=== PATIENT | male | born 1955 | race Caucasian/White ===

== ENCOUNTER → 2020-10-18 07:26 | Outpatient (CLI) | payer MEDICARE, SELFPAY ==
[2020-10-18 08:38] LABS: Alanine Aminotransferase 41 IU/L (<50); Albumin 4.4 g/dL (3.5-5.0); Albumin Globulin Ratio 1.5 (1.0-2.8); Alkaline Phosphatase 97 U/L (38-126); Aspartate Aminotransferase 41 IU/L (17-59); BUN Creatinine Ratio 12.6 (6-22); Bilirubin Total 0.4 mg/dL (0.2-1.3); Blood Urea Nitrogen 15 mg/dL (9-20); Calcium 10.1 mg/dL (8.4-10.2); Carbon Dioxide 26 mmol/L (22-32); Chloride 107 mmol/L (98-107); Cholesterol 237 mg/dL (140-199); Estimated Glomerular Filt Rate > 60.0 mL/min (>60); Globulin 2.9 g/dL (1.7-4.1); Glucose 101 mg/dL (80-110); HDL Cholesterol 93 mg/dL (40-60); HEMOLYSIS < 15 (0-50); LDL Cholesterol Calculated 128 mg/dL (<100); Potassium 5.2 mmol/L (3.4-5.1); Sodium 139 mmol/L (137-145); Total Protein 7.3 g/dL (6.3-8.2); Triglycerides 80 mg/dL (35-150)
[2020-10-18 09:13] LABS: Carcinoembryonic Antigen 9.2 ng/mL (0.1-3.0); Prostate Specific Antigen Scrn 1.65 ng/mL (0.1-4.0)
== END ==
PROVIDERS: PCP Internal Medicine; Referring Provider Internal Medicine; Visit Provider Internal Medicine
DX: C18.9 Malignant neoplasm of colon, unspecified (principal); Z12.5 Encounter for screening for malignant neoplasm of prostate; Z13.220 Encounter for screening for lipoid disorders
CPT/HCPCS: 36415; 80053; 80061; 82378; G0103

== ENCOUNTER → 2021-09-16 14:41 | Outpatient (CLI) | payer MEDICARE, SELFPAY ==
--- NOTE | 2021-09-16 14:42 | DI.US.S_ITS ---
PROCEDURE: US SCROTUM INDICATIONS: RIGHT INGUINAL/SCROTAL PAIN TECHNIQUE: Real-time scanning was performed of the scrotum and testicles, with image documentation. Color and pulse Doppler interrogation was performed of both testicles. COMPARISON: None. FINDINGS: Right: Testicle is normal in size at 4.2 x 2.4 x 2.5 cm, and homogenous in echotexture. Epididymis is normal in overall size and morphology. Large right hydrocele which contains debris. No varicoceles. Overlying scrotal skin is normal in thickness. Left: Testicle is normal in size at 3.4 x 3.0 x 2.3 cm, and homogeneous in echotexture. Epididymis is normal in overall size and morphology. Large right hydrocele which contains debris. No varicoceles. Overlying scrotal skin is normal in thickness. Doppler: Color and pulse Doppler demonstrate normal and symmetric arterial flow in both testicles. Area of acoustic shadowing noted in the right inguinal region which may be related to I hernia mesh; please correlate with surgical history. If patient has not had prior right inguinal hernia repair surgery, then CT scan of the pelvis should be obtained for further evaluation. IMPRESSION: 1. Bilateral hydroceles which contain debris. Debris is nonspecific may be related to prior hemorrhage, however infection/pyocele can not be excluded by imaging alone. Recommend correlation with clinical and laboratory data. 2. Focal acoustic shadowing in the right inguinal region possibly related to hernia mesh. Please correlate with surgical history. If no history of right inguinal hernia repair, then CT scan of the pelvis should be obtained. Dictated by: Rhiannon Gupta MD, PhD on 09/20/2021 at 16:15 Approved by: Rhiannon Gupta MD, PhD on 09/20/2021 at 16:21
== END ==
PROVIDERS: PCP Internal Medicine; Referring Provider Specialist; Visit Provider Specialist
DX: N43.3 Hydrocele, unspecified (principal); N50.82 Scrotal pain
CPT/HCPCS: 76870

== ENCOUNTER 2021-10-01 08:20 | Emergency (ER) | payer MEDICARE, SELFPAY ==
[2021-10-01] VITALS (9 sets, daily range): BP systolic 153–193; BP diastolic 76–91; PULSE 67–83; RESP 15–21; TEMP 36.6; O2SAT 97–100; BMI 23.6
--- NOTE | 2021-10-01 08:43 | DI.RAD.S_ITS ---
PROCEDURE: XR CHEST 1V INDICATIONS: chest pain TECHNIQUE: One view of the chest was acquired. COMPARISON: [facility], , CHEST 1 VIEW, 01/18/2009, 10:54. FINDINGS: Surgical changes and devices: None. Lungs and pleura: There is hyperinflation and chronic interstitial changes without focal infiltrate, pleural effusion or pneumothorax. Mediastinum: Mediastinal contours appear normal. Heart size is normal. Atherosclerotic vascular calcification noted in the aortic arch. Bones and chest wall: No suspicious bony lesions. Overlying soft tissues appear unremarkable. IMPRESSION: Hyperinflation and chronic interstitial changes Approved by: Adam Frias M.D. on 10/01/2021 at 8:30
--- NOTE | 2021-10-01 08:45 | ED.CHESTPAIN ---
HPI - Chest Pain General Chief Complaint: Chest Pain Stated Complaint: chest pain Time Seen by Provider: 10/01/21 08:40 Source: patient Mode of arrival: Ambulatory Limitations: no limitations Limitations: no limitations History of Present Illness HPI narrative: This is a 65-year-old male who comes with complaint of chest pain that started and last about 6 hours overnight it was still present when he initially arrived but states that has resolved at this time. At its maximum was 5 to 6/10 he states it has been going on for several years. Typically more frequently in the afternoon at night time. He does find that lying flat seems to make it more likely to occur he denies any other worsening factors, exertion does not cause any issues. No alleviating factors. Patient has not tried any medications at home for his symptoms. He describes it is substernal in just to the right. He gets sort of a pressure like there is gas and he gets sensation in his throat and sometimes a funny taste in his mouth. He denies any diaphoresis, no dyspnea, no nausea or vomiting. He has occasionally felt lightheaded but never had any syncope. He denies any swelling in his extremities. He is on Flomax and currently on an antibiotic that he started on Sunday for paronychia of his finger which has been intermittent since August. 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 It was removed by the patient himself but he did have a follow-up x-ray that confirmed there was no foreign body. It improved he had drainage and has since recurred and started on antibiotics but is not improving currently after 3 days of antibiotics. Does have a history of colon resection for colon cancer in 2008 he had chemo but no radiation. 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 Patient states that he had some sort of reaction to narcotic pain medication but does not know what medicine it was. He smokes a half pack per day of tobacco, 2-3 beers daily, no illicit. His primary care is Dr. Wiggins. His urologist is Dr. Lagunas and he is scheduled to have surgery for an enlarged testicle. Related Data Previous Rx's Medication Instructions Recorded tamsulosin 0.4 mg capsule 0.4 mg PO BEDTIME #90 cap 08/17/21 Allergies Allergy/AdvReac Type Severity Reaction Status Date / Time No Known Drug Allergies Allergy Verified 10/01/21 09:08 Review of Systems Review of Systems ROS Unobtainable: All systems reviewed & are unremarkable except as noted in HPI and below Patient History Medical History BPH w urinary obs/LUTS Colon cancer (~2008) Oral cancer (~2007) Right hydrocele Ventral incisional hernia Vision disorder Surgical History Anesthesia History of oral surgery (~2007) S/P inguinal hernia repair (~2007) S/P partial colectomy (~2008) Family History Father Lung cancer Mother Breast cancer, stage 0 Sister Lung cancer Grandfather Accident Social History marital status: number of children: 1 Smoking Status: Current every day smoker alcohol intake: current Type(s) of exercise: walking frequency: daily duration: 45-60 minutes/day Smoking Status: Current every day smoker alcohol intake frequency: 3 or more drinks per day Substance Use Type: does not use Exam Narrative Exam Narrative: GENERAL: Alert and oriented x three, male in mild distress. HEENT: Head normocephalic, atraumatic, EOMI, pupils reactive, face symmetric, moist mucous membranes NECK: Supple, full range of motion CARDIOVASCULAR: Regular rate and rhythm without murmurs, rubs or gallops. RESPIRATORY: Breath sounds equal bilaterally, no wheezes rales or rhonchi. ABDOMEN: Soft, nontender. Normoactive bowel sounds all 4 quadrants. No guarding or rebound, rigidity, no mass : No CVA tenderness EXTREMITIES: Normal range of motion, no clubbing. Patient has swelling of the 3rd digit on his left hand around the nail with a small amount of fluctuance and white discoloration, and slight erythematous change. The area slightly tender. The nail is intact with no discoloration or skin changes. Neurovascularly intact. Patient has normal sensation throughout. Cap refill less than 5 seconds in all 5 fingers. NEUROLOGICAL: Cranial nerves II through XII grossly intact. Moving all extremities SKIN: Warm, dry, no petechiae, no rashes or lesions otherwise noted. Initial Vital Signs Initial Vital Signs: Vital Signs Temperature 97.8 F 10/01/21 08:23 Pulse Rate 83 10/01/21 08:23 Respiratory Rate 18 10/01/21 08:23 Blood Pressure 193/89 H 10/01/21 08:23 Pulse Oximetry 99 10/01/21 08:23 Procedures Abscess I/D I&D #1: Time of procedure: 10:47 Site: hand (3rd finger, left hand) Side (if applicable): left Sedation/analgesia: none Local Anesthetic: other anesthetic (topical prilocaine) Technique: incised with #11 blade Amount of fluid expressed (mL): 1 Irrigation: No Packing used?: none Course Orders Ordered: ED Orders 10/01/21 08:40 BNP [NT-proBNP (BNP-Adult 18+)] Stat 10/01/21 08:43 XR chest 1V Stat EKG-12 Lead Stat 10/01/21 08:46 Complete Blood Count AUTO DIFF Stat Comprehensive Metabolic Panel Stat Lipase Stat Magnesium Stat Troponin & CK Cardiac Panel Stat 10/01/21 10:45 Troponin I Stat 10/01/21 10:54 Wound Culture and Gram Stain Stat Discontinued Medications Lidocaine/Prilocaine (Lidocaine/Prilocaine 5 Gm) 5 gm TOP NOW ONE Stop: 10/01/21 09:08 Last Admin: 10/01/21 09:25 Dose: 5 gm Documented by: ISSAC Lidocaine/Sodium Bicarbonate (Lido 1%/Sod Bicarb 8.4% (10ml) 10 Ml Syringe) 10 ml INJ NOW ONE Stop: 10/01/21 09:08 Last Admin: 10/01/21 10:49 Dose: Not Given Documented by: ISSAC Reevaluation(s) Reevaluation #1: Patient continues to be asymptomatic in terms of chest pain. He had some relief with drainage of the abscess/paronychia his finger. Vital Signs Vital signs: Vital Signs - 8 hr 10/01/21 08:23 10/01/21 08:30 10/01/21 09:00 Temperature 97.8 F Pulse Rate 83 83 81 Respiratory Rate 18 18 17 Blood Pressure 193/89 H 189/91 H 162/86 H Pulse Oximetry 99 100 99 10/01/21 09:29 10/01/21 09:30 10/01/21 10:00 Temperature Pulse Rate 81 78 74 Respiratory Rate 19 18 15 Blood Pressure 155/82 H 153/76 H 160/89 H Pulse Oximetry 98 99 99 10/01/21 10:30 10/01/21 11:00 10/01/21 11:30 Temperature Pulse Rate 70 71 67 Respiratory Rate 21 19 18 Blood Pressure 161/85 H 164/86 H 166/85 H Pulse Oximetry 97 98 97 MDM - Chest Pain Lab Data Result diagrams: 10/01/21 08:46 10/01/21 08:46 Labs: Lab Results 10/01/21 10/01/21 10/01/21 Range/Units 08:40 08:46 08:46 WBC 7.6 (4.5-11.0) X10^3/uL RBC 5.16 (4.5-5.9) X10^6/uL Hgb 16.9 (13.5-17.5) g/dL Hct 50.1 (41-53) % MCV 96.9 (80-100) fL MCH 32.7 (26-34) PG MCHC 33.7 (30-36) % RDW 14.3 (11.6-14.8) % Plt Count 225 (150-400) X10^3/uL Neut % (Auto) 60.8 (50-75) % Lymph % (Auto) 25.5 (25-40) % [place] % (Auto) 8.8 (3-14) % Eos % (Auto) 3.5 (2-4) % Baso % (Auto) 1.4 (0-2) % Neut # (Auto) 4600 (4220-6563) /uL Lymph # (Auto) 1900 (6721-8437) /uL [place] # (Auto) 700 (0-900) /uL Eos # (Auto) 300 (0-450) /uL Baso # (Auto) 100 (0-100) /uL Sodium 138 (137-145) mmol/L Potassium 3.9 (3.4-5.1) mmol/L Chloride 106 (98-107) mmol/L Carbon Dioxide 27 (22-32) mmol/L BUN 14 (9-20) mg/dL Creatinine 1.02 (0.66-1.25) mg/dL Estimated GFR > 60.0 (>60) mL/min BUN/Creatinine Ratio 13.7 (6-22) Glucose 165 H (80-110) mg/dL Calcium 9.2 (8.4-10.2) mg/dL Magnesium 2.1 (1.6-2.3) mg/dL Total Bilirubin 0.7 (0.2-1.3) mg/dL AST 40 (17-59) IU/L ALT 29 (<50) IU/L Alkaline Phosphatase 75 (38-126) U/L Total Creatine Kinase 93 (55-170) U/L CK-MB (CK-2) TNP CK-MB (CK-2) Rel Index TNP Troponin I < 0.012 (0.01-0.034) ng/mL NT-Pro-B Natriuret Pep 112 (<125) pg/mL Total Protein 7.9 (6.3-8.2) g/dL Albumin 4.6 (3.5-5.0) g/dL Globulin 3.3 (1.7-4.1) g/dL Albumin/Globulin Ratio 1.4 (1.0-2.8) Lipase 51 (23-300) U/L 10/01/21 Range/Units 10:45 WBC (4.5-11.0) X10^3/uL RBC (4.5-5.9) X10^6/uL Hgb (13.5-17.5) g/dL Hct (41-53) % MCV (80-100) fL MCH (26-34) PG MCHC (30-36) % RDW (11.6-14.8) % Plt Count (150-400) X10^3/uL Neut % (Auto) (50-75) % Lymph % (Auto) (25-40) % [place] % (Auto) (3-14) % Eos % (Auto) (2-4) % Baso % (Auto) (0-2) % Neut # (Auto) (8173-7686) /uL Lymph # (Auto) (7506-2072) /uL [place] # (Auto) (0-900) /uL Eos # (Auto) (0-450) /uL Baso # (Auto) (0-100) /uL Sodium (137-145) mmol/L Potassium (3.4-5.1) mmol/L Chloride (98-107) mmol/L Carbon Dioxide (22-32) mmol/L BUN (9-20) mg/dL Creatinine (0.66-1.25) mg/dL Estimated GFR (>60) mL/min BUN/Creatinine Ratio (6-22) Glucose (80-110) mg/dL Calcium (8.4-10.2) mg/dL Magnesium (1.6-2.3) mg/dL Total Bilirubin (0.2-1.3) mg/dL AST (17-59) IU/L ALT (<50) IU/L Alkaline Phosphatase (38-126) U/L Total Creatine Kinase (55-170) U/L CK-MB (CK-2) CK-MB (CK-2) Rel Index Troponin I < 0.012 (0.01-0.034) ng/mL NT-Pro-B Natriuret Pep (<125) pg/mL Total Protein (6.3-8.2) g/dL Albumin (3.5-5.0) g/dL Globulin (1.7-4.1) g/dL Albumin/Globulin Ratio (1.0-2.8) Lipase (23-300) U/L Imaging Data Chest x-ray: Radiologist's Impression: Launch?[place] [address] XRay Report Signed Patient: Brandon Orozco MR#: [id number] : 1955 Acct:[id number] Age/Sex: 65 / M Date of Service: 10/01/21 Loc: ED Accession Number: [id number] ?? Procedure: XR chest 1V Ordering Provider: Jaci Henao D.O. PROCEDURE:? XR CHEST 1V ? INDICATIONS:? chest pain ? TECHNIQUE:? One view of the chest was acquired.? ? COMPARISON:? [facility], , CHEST 1 VIEW, 01/18/2009, 10:54. ? FINDINGS:? ? Surgical changes and devices:? None.? ? Lungs and pleura:? There is hyperinflation and chronic interstitial changes without focal infiltrate, pleural effusion or pneumothorax. ? Mediastinum:? Mediastinal contours appear normal.? Heart size is normal.? Atherosclerotic vascular calcification noted in the aortic arch. ? Bones and chest wall:? No suspicious bony lesions.? Overlying soft tissues appear unremarkable.? ? IMPRESSION:? Hyperinflation and chronic interstitial changes ? ? ? Approved by: Adam Frias M.D. on 10/01/2021 at 8:30? ECG Data Attestation: I personally reviewed and interpreted this ECG as follows: Interpretation: Sinus rhythm with short MA ventricular rate of 77 MA 108 QRS 86 and QTC 391. Nonspecific change. Patient does not have priors for comparison. EKG 2. Shows normal sinus rhythm rate of 60 9p are 114 QRS 82 and QTC of 400. No acute ST changes are appreciated. Patient has prior EKGs appears similar to today's. MDM Narrative Medical decision making narrative: This is a 65-year-old male who comes in with complaint of chest pain patient describes it as being worse the evening and afternoon particularly with lying flat but no other worsening exacerbating or alleviating factors. Patient also notes a little bit of a funny taste in his mouth when this occurs. He has had some lightheadedness but no other red flag symptoms in terms of chest pain. Patient's EKGs and troponins are negative. Patient's had some chest discomfort 1/10 when he arrived in after 6 hours of persistent pain with negative troponin times, no acute EKG changes my suspicion for active cardiac cause of his symptoms somewhat lower although we discussed would be appropriate for stress testing. Patient's labs and imaging do not show any other major abnormalities. He has follow-up this week with his primary care provider and plans to talk to them about stress testing. Patient also notes he has had a paronychia of his finger which has been chronic and drained in the past after incident at work because the initial infection. Patient appears to have fluctuance again he is on day 3 of oral antibiotics. Patient states he had x-ray imaging as there is a small piece of steel will that got stuck in his finger it was negative. Offered to repeat again today but patient defers. Patient had I&D of the location with purulent discharge, sent for wound culture. Patient is to continue on oral antibiotics currently. Because this was a work related incident I asked patient to inform registration so we can make sure appropriate paperwork is filled out regarding his finger. 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 I would recommend being evaluated for stress testing. Dr. Wiggins can help arrange this. Also discussed with Dr. Wiggins if you continue to have persistent infection in your finger you may need to follow-up with a hand surgeon. Please complete your current antibiotic of doxycycline. You may perform warm compresses 3-4 times daily to the affected finger to help express any additional drainage. I would recommend trying Pepcid 20 mg once daily to see if this improves your symptoms. This is available [id number]. Included below is referral to Oncology to continue with surveillance for your prior colon cancer. Call to set up follow-up. Please return for new or worsening chest pain, shortness of breath, lightheadedness or passing out, persistent vomiting, new swelling in her extremities, signs of worsening infection her finger or other new or concerning symptoms. Prescriptions: No Action tamsulosin 0.4 mg capsule 0.4 mg PO BEDTIME Qty: 90 3RF Referrals: Johan Wiggins MD [Primary Care Provider] - Dionte Fraga MD [Physician] - Stand Alone Forms: Work Release Note
[2021-10-01 08:49] LABS: Add Manual Diff / Slide Review NO; Basophils Absolute Auto 100 /uL (0-100); Basophils Percent Auto 1.4 % (0-2); Eosinophils Absolute Auto 300 /uL (0-450); Eosinophils Percent Auto 3.5 % (2-4); Hematocrit 50.1 % (41-53); Hemoglobin 16.9 g/dL (13.5-17.5); Lymphocytes Absolute Auto 1900 /uL (1100-4500); Lymphocytes Percent Auto 25.5 % (25-40); Mean Corpuscular HGB Conc 33.7 % (30-36); Mean Corpuscular Hemoglobin 32.7 PG (26-34); Mean Corpuscular Volume 96.9 fL (80-100); Monocytes Absolute Auto 700 /uL (0-900); Monocytes Percent Auto 8.8 % (3-14); Neutrophils Absolute Auto 4600 /uL (1500-7000); Neutrophils Percent Auto 60.8 % (50-75); Platelet Count 225 X10^3/uL (150-400); Red Blood Cell Count 5.16 X10^6/uL (4.5-5.9); Red Cell Distribution Width 14.3 % (11.6-14.8); White Blood Cell Count 7.6 X10^3/uL (4.5-11.0)
[2021-10-01 08:55] LABS: Alanine Aminotransferase 29 IU/L (<50); Albumin 4.6 g/dL (3.5-5.0); Albumin Globulin Ratio 1.4 (1.0-2.8); Alkaline Phosphatase 75 U/L (38-126); Aspartate Aminotransferase 40 IU/L (17-59); BUN Creatinine Ratio 13.7 (6-22); Bilirubin Total 0.7 mg/dL (0.2-1.3); Blood Urea Nitrogen 14 mg/dL (9-20); Calcium 9.2 mg/dL (8.4-10.2); Carbon Dioxide 27 mmol/L (22-32); Chloride 106 mmol/L (98-107); Creatine Kinase 93 U/L (55-170); Estimated Glomerular Filt Rate > 60.0 mL/min (>60); Globulin 3.3 g/dL (1.7-4.1); Glucose 165 mg/dL (80-110); HEMOLYSIS < 15 (0-50); Lipase 51 U/L (23-300); Magnesium 2.1 mg/dL (1.6-2.3); Potassium 3.9 mmol/L (3.4-5.1); Sodium 138 mmol/L (137-145); Total Protein 7.9 g/dL (6.3-8.2)
[2021-10-01 09:06] LABS: Troponin I < 0.012 ng/mL (0.01-0.034)
[2021-10-01 09:09] LABS: NT-proBNP (BNP-Adult 18+) 112 pg/mL (<125)
[2021-10-01] MEDS: LIDOCAINE/PRILOCAINE 5 GM TOP (09:25)
[2021-10-01 11:12] LABS: Troponin I < 0.012 ng/mL (0.01-0.034)
== END 2021-10-01 12:00 | disposition home or self-care (01) ==
PROVIDERS: Emergency Provider Emergency Medicine; PCP Internal Medicine
DX: R07.9 Chest pain, unspecified (principal)
CPT/HCPCS: 10060; 36415; 71045; 80053; 82550; 83690; 83735; 83880; 84484; 85025; 87070; 87077; 87186; 87205; 93005; 93010; 99284

== ENCOUNTER 2021-10-01 08:20 | Emergency (ER) | payer OTHER, SELFPAY | END 2021-10-01 12:00 | disposition home or self-care (01) | LOC: ED 10-07 10:34 | PROVIDERS: Emergency Provider Emergency Medicine; PCP Internal Medicine | DX: L03.012 Cellulitis of left finger (principal); W45.8XXA Other foreign body or object entering through skin, initial encounter; Y99.0 Civilian activity done for income or pay; Y92.59 Other trade areas as the place of occurrence of the external cause | CPT/HCPCS: 10060; 99282 ==

== ENCOUNTER → 2021-11-01 16:03 | Outpatient (CLI) | payer MEDICARE, SELFPAY ==
[2021-11-01 16:44] LABS: COVID19 -Nasal RAPID Negative (Negative)
== END ==
PROVIDERS: PCP Internal Medicine; Visit Provider Specialist
DX: N43.3 Hydrocele, unspecified (principal); N40.1 Benign prostatic hyperplasia with lower urinary tract symptoms; N13.8 Other obstructive and reflux uropathy; Z20.822 Contact with and (suspected) exposure to COVID-19
CPT/HCPCS: 87635; 99215

== ENCOUNTER 2021-11-04 07:30 | Day surgery (SDC) | payer MEDICARE, SELFPAY ==
[2021-11-03 14:18] VITALS: BMI 22.9
[2021-11-04] VITALS (9 sets, daily range): BP systolic 143–162; BP diastolic 78–86; PULSE 67–76; RESP 15–18; TEMP 36.2–36.4; O2SAT 96–100; BMI 22.9
[2021-11-04] MEDS: LACTATED RINGERS 1,000 ML 42 ML IV (08:02)
--- NOTE | 2021-11-04 09:23 | PM.PREOP ---
Pre-operative Note COVID-19 Criteria for continued procedure: Expected advancement of disease process, Increased loss of function, Continuing or worsening of significant or severe pain, Deterioration of the patient's condition or overall health, Delay expected to result in less-positive ultimate med/surg outcome and Non-surgical alternatives not available or appropriate per current SOC Interval Note History & Physical reviewed/Exam performed by Physician: Yes Changes to H&P: No
[2021-11-04] MEDS: CEFAZOLIN 2 GM/20 ML SYRINGE IV (10:10)
--- NOTE | 2021-11-04 10:30 | SUR.OPER ---
Addendum entered by Angeles Mirza R.N. 11/04/21 10:31: Glasses and phone placed in patient belonging bag in preop. Glasses in case with patient sticker attached. Original Note: Supine on padded OR bed, head on pillow, arms secured on padded arm boards at <90 degrees abduction, legs uncrossed, safety belt at thigh, tape over blanket over lower legs. Gel pad under heels.
[2021-11-04] MEDS: NEOMYCIN/POLYMYXIN/BACITRA UD OINT 2 EACH TOP (10:49)
[2021-11-04] MEDS: BUPIVACAINE LIPOSOME 266 MG/20 ML VIAL INJ (10:51)
[2021-11-04] MEDS: BUPIVACAINE 0.25% (PF) 30 ML, EPINEPHrine 0.15 MG INJ (10:51)
--- NOTE | 2021-11-04 11:26 | P.OP_ITS ---
Operative Date/Time/Diagnoses Date of procedure: 11/04/21 Time of procedure: 11:27 Pre-op diagnosis: Right hydrocele Post-op diagnosis: same Procedure & Clinicians Procedure: 1. Right hydrocelectomy. Same procedure as scheduled: Yes Indications: 1. Symptomatic right hydrocele. Surgeon: Russell Lagunas Click Yes if Unassisted: Yes Anesthesia Type: General and Local (1.33% Exparel) Operative Notes Findings: Scrotal skin and subcutaneous tissue planes unremarkable. Tunica vaginalis sac was thickened chronically inflamed. There was a 5 mm scrotal felicia within the hydrocele sac. Closure Type: primary Specimen(s): none sent Applied: drain(s) (Ten Amharic fenestrated Walter drain to bulb self suction.) Estimated Blood Loss (mL): 2 Blood products transfused: none Procedure in detail: The patient was positioned supine was administered general anesthesia. The lower abdomen, genitalia, and groin were then prepped and draped in sterile fashion. A solution of 0.5% Marcaine with epinephrine was then used to infiltrate the skin and subcutaneous tissue of the midline scrotal raphae. The needle tip cautery pen was then used to create incision along the midline raphe through the skin and subcutaneous dartos fascia. The surface of the right tunica vaginalis was encountered. The appropriate plane was then entered and developed circumferentially around the fluid filled tunica vaginalis. The entire structure was then delivered from the right right hemiscrotum into the operative field. The tunic vaginalis was then opened longitudinally along its anterior surface and clear straw color fluid was drained. A scrotal felicia was identified and removed. Next a accounts receivable bookkeeper repair was performed using a horizontal mattress of 2-0 Monocryl. The inferior pole of the repair was then secured to the inferior posterior inter wall the scrotum was same suture. Exparel was then used to infiltrate the inferolateral right hemiscrotal wall- both skin and dartos fascia. A 10 Amharic fenestrated Walter drain was then passed through this anesthetized area and positioned appropriately at the skin level. It was secured in place with 2-0 silk in usual fashion. The distal end of the drain was trimmed appropriately for appropriate positioning within the right hemiscrotum. Next, the midline dartos fascia was closed with running 2-0 Monocryl. The skin was then reapproximated using a running horizontal mattress of 4-0 Monocryl. The skin surfaces then cleaned and dried. Bacitracin ointment was then applied to the incision site. Now dry sterile fluffs were applied to the scrotum. The patient was then fitted with an athletic supporter. He was then awakened transferred to [facility] for transport to PACU. Complications: none Post-operative Condition: stable Disposition: PACU Plan for aftercare: Discharge home.
--- NOTE | 2021-11-04 12:17 | SUR.PHASEII ---
pt given detailed discharge instructions. Pt denies pain and states he is ready to go. Pt given ice pack . Pt to be discharged with friend Karin.
== END 2021-11-04 12:15 | disposition home or self-care (01) ==
PROVIDERS: PCP Internal Medicine; Referring Provider Specialist; Visit Provider Specialist
PROC: (CPT 55040; principal; 2021-11-04 09:15)
DX: N43.3 Hydrocele, unspecified (principal); N40.1 Benign prostatic hyperplasia with lower urinary tract symptoms; N13.8 Other obstructive and reflux uropathy; F17.210 Nicotine dependence, cigarettes, uncomplicated
CPT/HCPCS: 55040; C9290; J0171; J0690; J1100; J2405; J2704; J3010

== ENCOUNTER 2021-11-05 07:24 | Emergency (ER) | payer MEDICARE, SELFPAY ==
[2021-11-05 07:38] VITALS: BP 126/62; PULSE 89; RESP 18; TEMP 36.7; O2SAT 100; BMI 22.9
--- NOTE | 2021-11-05 07:45 | ED.MALEGU ---
HPI - Male Genitourinary General Chief complaint: Recheck/Abnormal Lab/Rx Stated complaint: Surg yesterday- stitches came out Time Seen by Provider: 11/05/21 07:32 History of Present Illness HPI Narrative: 66M daily smoker presents with bleeding from surgical site. He had a hydrocele repair yesterday with local urology (Janneth) and states a suture popped and he's got some bleeding from the site. He denies trauma, fever, or other issue. He denies dizziness, weakness or lightheadedness and has no trouble with bowels or urination Related Data Previous Rx's Medication Instructions Recorded tamsulosin 0.4 mg capsule 0.4 mg PO BEDTIME #90 cap 08/17/21 oxycodone 5 mg tablet 5 mg PO Q4H PRN #20 tab 11/04/21 Allergies Allergy/AdvReac Type Severity Reaction Status Date / Time No Known Drug Allergies Allergy Verified 11/05/21 07:50 Review of Systems Review of Systems Narrative: GENERAL: Denies chills, fatigue, malaise, fever, sweats. HEENT: Denies sinus pain, ear pain, sore throat, difficulty swallowing, dizziness. RESPIRATORY: Denies dyspnea, cough, wheezing, hemoptysis, sputum. CARDIOVASCULAR: Denies chest pain, palpitations, orthopnea, edema, GASTROINTESTINAL: Denies nausea, vomiting, abdominal pain, diarrhea, constipation, melena. : Denies dysuria, frequency, incontinence, hematuria, urinary retention. MUSCULOSKELETAL: denies weakness, joint pain, or bony pain SKIN: See HPI NEUROLOGIC: Denies weakness, headache, numbness, change in speech, confusion, seizures, incoordination. PSYCHIATRIC: No concerning psychosocial issues. 12 point review of systems is negative except for those stated above Patient History Medical History BPH w urinary obs/LUTS Colon cancer (~2008) Oral cancer (~2007) Right hydrocele Ventral incisional hernia Vision disorder Surgical History Anesthesia History of oral surgery (~2007) S/P inguinal hernia repair (~2007) S/P partial colectomy (~2008) Family History Father Lung cancer Mother Breast cancer, stage 0 Sister Lung cancer Grandfather Accident Social History marital status: number of children: 1 household members: none Smoking Status: Current every day smoker alcohol intake: current Type(s) of exercise: walking frequency: daily duration: 45-60 minutes/day Smoking Status: Current every day smoker alcohol intake frequency: 3 or more drinks per day Substance Use Type: does not use Exam Narrative Exam Narrative: GEN: AOx3 and in mild distress EYES: Pupils are equal, round, and reactive to light and accommodation. Extraoccular muscles are intact bilaterally. There is no subconjunctival hemorrhage or exudate. CHEST: Lungs are clear to auscultation bilaterally and free of wheezes, rales, or rhonchi. Heart rate is regular rhythm, there are no murmurs, clicks, rubs, or gallops. There is no chest wall tenderness. ABD: Abdomen is soft and nontender. There is no guarding or rebound. Bowel sounds are normal in all 4 quadrants. There is no mass or organomegaly. : incision largely intact, small area of dehiscence and possible broken stitch in the middle of the incision with a small amount of dark, nonpulsatile bleeding, minimal swelling, overall appears quite well EXT: Full painless ROM of all extremities with no loss of sensation or strength. SKIN: Warm, pink, and dry. No erythema or rash Initial Vital Signs Initial Vital Signs: Vital Signs Temperature 98.0 F 11/05/21 07:38 Pulse Rate 89 11/05/21 07:38 Respiratory Rate 18 11/05/21 07:38 Blood Pressure 126/62 11/05/21 07:38 Pulse Oximetry 100 11/05/21 07:38 Course Consultations Consultation #1: Discussed with on-call Urology, Dr. Lagunas, recommends Steri-Strips, reassurance, calling office on Sunday and will likely get him in early in the week Vital Signs Vital signs: Vital Signs - 8 hr 11/05/21 07:38 Temperature 98.0 F Pulse Rate 89 Respiratory Rate 18 Blood Pressure 126/62 Pulse Oximetry 100 Discharge Plan Departure Patient Disposition: Home Clinical Impression: Postoperative bleeding from incision Activity Restrictions/Additional Instructions: *You have been diagnosed with [small amount of bleeding from incision, likely from a broken suture. Steri-Strips have been placed. I spoke with Dr. Lagunas who wants you to call his office Sunday morning to arrange follow-up *What to do: *Please continue to take your regular medications as directed. [ ] New medication prescriptions sent to your pharmacy: [ ] [ ] New medication written as a paper prescription [ x] No new medications given *Return to Emergency Department if you should have any new, worsening or concerning symptoms, such as [fever greater than 101 F, shaking chills, worsening pain, persistent vomiting or other bothersome symptoms] Prescriptions: No Action oxycodone 5 mg tablet 5 mg PO Q4H PRN (Reason: pain) Qty: 20 0RF tamsulosin 0.4 mg capsule 0.4 mg PO BEDTIME Qty: 90 3RF Referrals: Johan Wiggins MD [Primary Care Provider] -
== END 2021-11-05 08:05 | disposition home or self-care (01) ==
PROVIDERS: Emergency Provider Emergency Medicine; PCP Internal Medicine
DX: N99.820 Postprocedural hemorrhage of a genitourinary system organ or structure following a genitourinary system procedure (principal)
CPT/HCPCS: 99281

== ENCOUNTER → 2021-11-15 07:43 | Outpatient (CLI) | payer MEDICARE, SELFPAY ==
[2021-11-15 10:48] LABS: Cholesterol 222 mg/dL (140-199); HDL Cholesterol 88 mg/dL (40-60); LDL Cholesterol Calculated 116 mg/dL (<100); Triglycerides 89 mg/dL (35-150)
[2021-11-15 11:13] LABS: Carcinoembryonic Antigen 9.7 ng/mL (0.1-3.0)
[2021-11-15 11:21] LABS: TSH w/ Reflex to FT4 1.35 uIU/mL (0.47-4.68)
== END ==
PROVIDERS: PCP Internal Medicine; Referring Provider Internal Medicine; Visit Provider Internal Medicine
DX: C18.2 Malignant neoplasm of ascending colon (principal); N13.8 Other obstructive and reflux uropathy; N40.1 Benign prostatic hyperplasia with lower urinary tract symptoms
CPT/HCPCS: 36415; 80061; 82378; 84443

== ENCOUNTER → 2022-02-28 16:08 | Outpatient (CLI) | payer OTHER, MEDICARE, SELFPAY ==
--- NOTE | 2022-02-28 16:10 | DI.RAD.S_ITS ---
PROCEDURE: XR CHEST 2V INDICATIONS: BACK PAIN TECHNIQUE: 2 views of the chest were acquired. COMPARISON: None. FINDINGS: Surgical changes and devices: None. Lungs and pleura: Lungs are clear. No pleural effusions or pneumothorax. Mediastinum: Mediastinal contours are normal. Heart size is normal. Bones and chest wall: No suspicious bony abnormalities. Soft tissues appear unremarkable. IMPRESSION: No acute cardiopulmonary process demonstrated radiographically. Dictated by: Lee High M.D. on 02/28/2022 at 16:49 Approved by: Lee High M.D. on 02/28/2022 at 16:49
== END ==
PROVIDERS: PCP Internal Medicine; Referring Provider Internal Medicine; Visit Provider Internal Medicine
DX: M54.6 Pain in thoracic spine (principal)
CPT/HCPCS: 71046

== ENCOUNTER 2022-06-02 08:15 | Outpatient (RCR) | payer OTHER, MEDICARE, SELFPAY ==
--- NOTE | 2022-04-12 16:00 | PT.OPPOC ---
Physical, Occupational & Speech Therapy At [facility] Current Diagnoses Dorsalgia, unspecified (04/12/22) Visit Care Team Role Provider Type Johan Wiggins MD Attending Provider Physician Family Provider Primary Care Provider Referring Provider Specialty: Internal Medicine Address: [address] [place] [address], [address], [address] Email: [email or web address] Plan Of Care PT-OP-T Assessment and Plan Start: 04/11/22 21:51 Freq: Status: Active Protocol: Document 04/12/22 13:45 AMB (Rec: 04/18/22 15:59 AMB [id number]) Physical Therapy Assessment Rehab Potential Rehabilitation Potential Good Evaluation Complexity Number of Personal Factors/Comorbidities 1-2 Number of Body Systems Impaired 4 or More Clinical Presentation at Evaluation Evolving Impairments Impairments Activity Tolerance,Functional Activities,Pain,Posture Goals Two Impairment Tingling Short Term Goal (STG) Brandon will show less nerve irritability by being able to peform a row without increasing the tingling in his arm. STG Duration 4 weeks Advertising Vice President Goal (LTG) Brandon will lift 20# to chest height without pain or tingling. LTG Duration 8 weeks One Impairment Pain Short Term Goal (STG) Brandon will stand for 45 minutes without an increase in his baseline pain. Advertising Vice President Goal (LTG) Brandon will work for 8 hours with 2/10 pain or less. LTG Duration 10 weeks Assessment Summary Assessment Brandon presents to physical therapy with upper back/ scapular pain and tingling that radiates into the right arm and down into the palm and all 5 fingers. 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 Good cervical and shoulder ROM bilterally, weak exernal rotation at the shoulder on the right. Good specialist physicians strength. Consider tight scalenes/pecs compression despite pt having available range, has poor postural habits that could compress especially when at work. Pt will benefit from physical therapy for a program of stretching and strengthening so he can work with improved posture. Physical Therapy Plan Frequency and Duration Frequency of Treatment 2x/Week Duration of treatment (weeks) 10 Plan of Care Start Date 04/12/22 Plan of Care End Date 06/21/22 Therapeutic Interventions Therapeutic Interventions Home Exercise Program,Joint Mobilizations,Manual Therapy, Neuromuscular Re-education, Self-Care/Home Management, Therapeutic Activities, Therapeutic Exercises Modalities Cold Pack/Ice Massage,Electric Stimulation,Hot Packs Next Visit Focus/Plan Next Note Type Treatment Note Next Visit Plan Review pec stretch (supine) and shoulder blade squeeze Plan of Care Dates Plan of Care Start Date 04/12/22 Plan of Care End Date 06/21/22 Electronically Signed by: Yazmin Hanna, PT 04/18/22 1600 If you are in agreement with this Plan of Care, please return a signed and dated copy. I have reviewed this Plan of Care and certify that the skilled therapy services above are required to meet the patient?s needs. Physician Signature Date Printed Name and Credentials Clinical Instructor Signature Printed Name and Credentials
--- NOTE | 2022-04-12 16:00 | PT.OIE ---
Current Diagnoses Dorsalgia, unspecified (04/12/22) Past Medical History (Last Reviewed 02/26/22 @ 09:48 by BUD Winchester) BPH w urinary obs/LUTS Colon cancer (~2008) Erectile dysfunction due to arterial insufficiency Oral cancer (~2007) Right hydrocele Ventral incisional hernia Vision disorder Past Surgical History (Last Reviewed 02/26/22 @ 09:48 by BUD Winchester) Anesthesia History of oral surgery (~2007) S/P inguinal hernia repair (~2007) S/P partial colectomy (~2008) Visit Care Team Role Provider Type Johan Wiggins MD Attending Provider Physician Family Provider Primary Care Provider Referring Provider Specialty: Internal Medicine Address: [address] [place] [address], [address], [facility] Email: [email or web address] Physical Therapy Initial Evaluation PT-OP-A Visit Information Start: 04/11/22 21:51 Freq: Status: Active Protocol: Document 04/12/22 13:47 AMB (Rec: 04/12/22 13:57 AMB [id number]) Out-Patient Physical Therapy Visit Information Visit Information Visit Type Initial Evaluation Visit Start Time 13:45 Visit Stop Time 14:30 Total Visit Minutes 45 Visit Number 1 PT-OP-B Current Condition Start: 04/11/22 21:51 Freq: Status: Active Protocol: Document 04/12/22 13:47 AMB (Rec: 04/12/22 13:57 AMB [id number]) Current Condition History of Current Condition Onset Date Summer 2019 Current Complaints tingling into R arm, upper back pain History of Current Condition Tingling and pain going down the arm. Pain starts out more manageable throughout the day gets worse. Pain is worsened by working, standing, lifting , eased by ice, lying down. Pain is worst distally worst at the elbow, sharp. Does endorse reduced sensation and dropping things. Staying the same. Pain in the back worsened with lifting late partner, arm pain started after that. Partner passed from Alzheimers. 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 Personal Factors Other Personal Factors That May Effect Current every day smoker, Therapy/Recovery neuropathy, CA history: colon 2008, oral 2007. PT-OP-C Subjective Start: 04/11/22 21:51 Freq: Status: Active Protocol: Document 04/12/22 13:45 AMB (Rec: 04/12/22 15:00 AMB [id number]) Patient Questionnaires Oswestry Low Back Index Oswestry Score 22 Oswestry Impairment 20 to 39% Impaired (Score 20- 39) OP-PT Pain Assessment Comments Pain Comments R mid back, parascapular into the front of the shoulder, with the worst into the elbow, tingling into the palm of the hand PT-OP-J Posture/Palpation/Skin Start: 04/11/22 21:51 Freq: Status: Active Protocol: Document 04/12/22 13:45 AMB (Rec: 04/12/22 15:00 AMB [id number]) Posture Evaluation Comments Posture Comments Moderate/severe forward shoulders, forward head Palpation Assessment Location One Palpation Location R scapula Palpation Details Tenderness at levator scapula PT-OP-K Range of Motion Start: 04/11/22 21:51 Freq: Status: Active Protocol: Document 04/12/22 13:45 AMB (Rec: 04/12/22 15:00 AMB [id number]) Cervical Spine Range of Motion Cervical Spine Active Degrees Comments WFL Shoulder Goniometric Range of Motion Shoulder Right Active Comments Pt reports unable to lift shoulder at end of the day, but was able to lift through full ROM during exam PT-OP-L Special Tests Start: 04/11/22 21:51 Freq: Status: Active Protocol: Document 04/12/22 13:45 AMB (Rec: 04/18/22 15:41 AMB [id number]) Special Tests Cervical Spine Special Tests Spurling's Test Test Results - Vascular Special Tests Duarte Test Test Results + Comments after 10 seconds increased sx on palm of R hand into all 5 fingers PT-OP-M Strength Start: 04/11/22 21:51 Freq: Status: Active Protocol: Document 04/12/22 13:45 AMB (Rec: 04/12/22 15:00 AMB [id number]) Hand Cloth Bin Packer/Pinch Strength Hand Dominance Hand Dominance Right Hand Strength Left Cloth Bin Packer (lbs) 65 Right Cloth Bin Packer (lbs) 65 PT-OP-Q Treatments Start: 04/11/22 21:51 Freq: Status: Active Protocol: Document 04/12/22 13:45 AMB (Rec: 04/12/22 15:00 AMB [id number]) Therapeutic Exercises Supine Exercises pec stretch Side bilateral Reps/Minutes 30x2 Comments HEP Standing Exercises scap squeezes Side bilateral Reps/Minutes 10 Comments HEP rows Standing Exercise Name t band Comments increased tingling 1 Standing Exercise Name pec stretch in corner Comments increased tingling PT-OP-T Assessment and Plan Start: 04/11/22 21:51 Freq: Status: Active Protocol: Document 04/12/22 13:45 AMB (Rec: 04/18/22 15:59 AMB [id number]) Physical Therapy Assessment Rehab Potential Rehabilitation Potential Good Evaluation Complexity Number of Personal Factors/Comorbidities 1-2 Number of Body Systems Impaired 4 or More Clinical Presentation at Evaluation Evolving Impairments Impairments Activity Tolerance,Functional Activities,Pain,Posture Goals Two Impairment Tingling Short Term Goal (STG) Brandon will show less nerve irritability by being able to peform a row without increasing the tingling in his arm. STG Duration 4 weeks Tip Fixer Goal (LTG) Brandon will lift 20# to chest height without pain or tingling. LTG Duration 8 weeks One Impairment Pain Short Term Goal (STG) Brandon will stand for 45 minutes without an increase in his baseline pain. Tip Fixer Goal (LTG) Brandon will work for 8 hours with 2/10 pain or less. LTG Duration 10 weeks Assessment Summary Assessment Brandon presents to physical therapy with upper back/ scapular pain and tingling that radiates into the right arm and down into the palm and all 5 fingers. 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 Good cervical and shoulder ROM bilterally, weak exernal rotation at the shoulder on the right. Good contract loader strength. Consider tight scalenes/pecs compression despite pt having available range, has poor postural habits that could compress especially when at work. Pt will benefit from physical therapy for a program of stretching and strengthening so he can work with improved posture. Physical Therapy Plan Frequency and Duration Frequency of Treatment 2x/Week Duration of treatment (weeks) 10 Plan of Care Start Date 04/12/22 Plan of Care End Date 06/21/22 Therapeutic Interventions Therapeutic Interventions Home Exercise Program,Joint Mobilizations,Manual Therapy, Neuromuscular Re-education, Self-Care/Home Management, Therapeutic Activities, Therapeutic Exercises Modalities Cold Pack/Ice Massage,Electric Stimulation,Hot Packs Next Visit Focus/Plan Next Note Type Treatment Note Next Visit Plan Review pec stretch (supine) and shoulder blade squeeze
--- NOTE | 2022-04-28 14:09 | PT.OTN ---
Current Diagnoses Dorsalgia, unspecified (04/28/22) Physical Therapy Treatment Note PT-OP-A Visit Information Start: 04/11/22 21:51 Freq: Status: Active Protocol: Document 04/28/22 09:00 AMB (Rec: 04/30/22 09:18 AMB [id number]) Out-Patient Physical Therapy Visit Information Visit Information Visit Type Treatment Note Visit Start Time 09:00 Visit Stop Time 09:45 Total Visit Minutes 45 Visit Number 2 PT-OP-B Current Condition Start: 04/11/22 21:51 Freq: Status: Active Protocol: Document 04/12/22 13:47 AMB (Rec: 04/12/22 13:57 AMB [id number]) Current Condition History of Current Condition Onset Date Summer 2019 Current Complaints tingling into R arm, upper back pain History of Current Condition Tingling and pain going down the arm. Pain starts out more manageable throughout the day gets worse. Pain is worsened by working, standing, lifting , eased by ice, lying down. Pain is worst distally worst at the elbow, sharp. Does endorse reduced sensation and dropping things. Staying the same. Pain in the back worsened with lifting late partner, arm pain started after that. Partner passed from Alzheimers. 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 Personal Factors Other Personal Factors That May Effect Current every day smoker, Therapy/Recovery neuropathy, CA history: colon 2008, oral 2007. PT-OP-C Subjective Start: 04/11/22 21:51 Freq: Status: Active Protocol: Document 04/28/22 09:00 AMB (Rec: 04/30/22 09:18 AMB [id number]) OP-PT Subjective Patient Comments Patient Comments Brandon states he is having less pain/numbness tingling. He is going to the gym at work and finds this helpful. Doing his HEP. PT-OP-J Posture/Palpation/Skin Start: 04/11/22 21:51 Freq: Status: Active Protocol: Document 04/12/22 13:45 AMB (Rec: 04/12/22 15:00 AMB [id number]) Posture Evaluation Comments Posture Comments Moderate/severe forward shoulders, forward head Palpation Assessment Location One Palpation Location R scapula Palpation Details Tenderness at levator scapula PT-OP-K Range of Motion Start: 04/11/22 21:51 Freq: Status: Active Protocol: Document 04/12/22 13:45 AMB (Rec: 04/12/22 15:00 AMB [id number]) Cervical Spine Range of Motion Cervical Spine Active Degrees Comments WFL Shoulder Goniometric Range of Motion Shoulder Right Active Comments Pt reports unable to lift shoulder at end of the day, but was able to lift through full ROM during exam PT-OP-L Special Tests Start: 04/11/22 21:51 Freq: Status: Active Protocol: Document 04/12/22 13:45 AMB (Rec: 04/18/22 15:41 AMB [id number]) Special Tests Cervical Spine Special Tests Spurling's Test Test Results - Vascular Special Tests Duarte Test Test Results + Comments after 10 seconds increased sx on palm of R hand into all 5 fingers PT-OP-M Strength Start: 04/11/22 21:51 Freq: Status: Active Protocol: Document 04/12/22 13:45 AMB (Rec: 04/12/22 15:00 AMB [id number]) Hand Building Construction Professor/Pinch Strength Hand Dominance Hand Dominance Right Hand Strength Left Building Construction Professor (lbs) 65 Right Building Construction Professor (lbs) 65 PT-OP-Q Treatments Start: 04/11/22 21:51 Freq: Status: Active Protocol: Document 04/28/22 09:00 AMB (Rec: 04/30/22 14:08 AMB [id number]) Therapeutic Exercises Sidelying Exercises open book Side right Reps/Minutes 10 Sitting Exercises upper trap stretch Reps/Minutes 30x2 Standing Exercises push up plus Reps/Minutes 10 Comments on plinth scap squeezes Side bilateral Reps/Minutes 10 Comments HEP rows Standing Exercise Name t band Comments increased tingling 1 Standing Exercise Name pec stretch in corner Comments increased tingling Manual Therapy Treatment Soft Tissue Mobilization scapula Body Location R upper trap, rhomboids, Mobilization Type Myofascial Release Intensity/Depth Moderate Body Position Supine Comments pin and stretch for anterior and posterior musculature, careful with flexion and abduction shoulder positioning PT-OP-T Assessment and Plan Start: 04/11/22 21:51 Freq: Status: Active Protocol: Document 04/28/22 09:00 AMB (Rec: 04/30/22 09:18 AMB [id number]) Physical Therapy Assessment Goals Two Impairment Tingling Short Term Goal (STG) Brandon will show less nerve irritability by being able to peform a row without increasing the tingling in his arm. STG Duration 4 weeks Acidizer Helper Goal (LTG) Brandon will lift 20# to chest height without pain or tingling. LTG Duration 8 weeks One Impairment Pain Short Term Goal (STG) Brandon will stand for 45 minutes without an increase in his baseline pain. Acidizer Helper Goal (LTG) Brandon will work for 8 hours with 2/10 pain or less. LTG Duration 10 weeks Assessment Summary Assessment Brandon tolerated PT well, less intense numbness/tingling than at eval. Continues to have numbness tingling with prolonged shoulder abduction or flexion. Physical Therapy Plan Next Visit Focus/Plan Next Visit Plan Progress scapular stabilization and cervical/ shoulder mobility trying not to flare numbness/tingling
--- NOTE | 2022-04-30 14:09 | PT.OTN ---
Current Diagnoses Dorsalgia, unspecified (04/28/22) Physical Therapy Treatment Note PT-OP-A Visit Information Start: 04/11/22 21:51 Freq: Status: Active Protocol: Document 04/28/22 09:00 AMB (Rec: 04/30/22 09:18 AMB [id number]) Out-Patient Physical Therapy Visit Information Visit Information Visit Type Treatment Note Visit Start Time 09:00 Visit Stop Time 09:45 Total Visit Minutes 45 Visit Number 2 PT-OP-B Current Condition Start: 04/11/22 21:51 Freq: Status: Active Protocol: Document 04/12/22 13:47 AMB (Rec: 04/12/22 13:57 AMB [id number]) Current Condition History of Current Condition Onset Date Summer 2019 Current Complaints tingling into R arm, upper back pain History of Current Condition Tingling and pain going down the arm. Pain starts out more manageable throughout the day gets worse. Pain is worsened by working, standing, lifting , eased by ice, lying down. Pain is worst distally worst at the elbow, sharp. Does endorse reduced sensation and dropping things. Staying the same. Pain in the back worsened with lifting late partner, arm pain started after that. Partner passed from Alzheimers. 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 Personal Factors Other Personal Factors That May Effect Current every day smoker, Therapy/Recovery neuropathy, CA history: colon 2008, oral 2007. PT-OP-C Subjective Start: 04/11/22 21:51 Freq: Status: Active Protocol: Document 04/28/22 09:00 AMB (Rec: 04/30/22 09:18 AMB [id number]) OP-PT Subjective Patient Comments Patient Comments Brandon states he is having less pain/numbness tingling. He is going to the gym at work and finds this helpful. Doing his HEP. PT-OP-J Posture/Palpation/Skin Start: 04/11/22 21:51 Freq: Status: Active Protocol: Document 04/12/22 13:45 AMB (Rec: 04/12/22 15:00 AMB [id number]) Posture Evaluation Comments Posture Comments Moderate/severe forward shoulders, forward head Palpation Assessment Location One Palpation Location R scapula Palpation Details Tenderness at levator scapula PT-OP-K Range of Motion Start: 04/11/22 21:51 Freq: Status: Active Protocol: Document 04/12/22 13:45 AMB (Rec: 04/12/22 15:00 AMB [id number]) Cervical Spine Range of Motion Cervical Spine Active Degrees Comments WFL Shoulder Goniometric Range of Motion Shoulder Right Active Comments Pt reports unable to lift shoulder at end of the day, but was able to lift through full ROM during exam PT-OP-L Special Tests Start: 04/11/22 21:51 Freq: Status: Active Protocol: Document 04/12/22 13:45 AMB (Rec: 04/18/22 15:41 AMB [id number]) Special Tests Cervical Spine Special Tests Spurling's Test Test Results - Vascular Special Tests Duarte Test Test Results + Comments after 10 seconds increased sx on palm of R hand into all 5 fingers PT-OP-M Strength Start: 04/11/22 21:51 Freq: Status: Active Protocol: Document 04/12/22 13:45 AMB (Rec: 04/12/22 15:00 AMB [id number]) Hand Insulation Supervisor/Pinch Strength Hand Dominance Hand Dominance Right Hand Strength Left Insulation Supervisor (lbs) 65 Right Insulation Supervisor (lbs) 65 PT-OP-Q Treatments Start: 04/11/22 21:51 Freq: Status: Active Protocol: Document 04/28/22 09:00 AMB (Rec: 04/30/22 14:08 AMB [id number]) Therapeutic Exercises Sidelying Exercises open book Side right Reps/Minutes 10 Sitting Exercises upper trap stretch Reps/Minutes 30x2 Standing Exercises push up plus Reps/Minutes 10 Comments on plinth scap squeezes Side bilateral Reps/Minutes 10 Comments HEP rows Standing Exercise Name t band Comments increased tingling 1 Standing Exercise Name pec stretch in corner Comments increased tingling Manual Therapy Treatment Soft Tissue Mobilization scapula Body Location R upper trap, rhomboids, Mobilization Type Myofascial Release Intensity/Depth Moderate Body Position Supine Comments pin and stretch for anterior and posterior musculature, careful with flexion and abduction shoulder positioning PT-OP-T Assessment and Plan Start: 04/11/22 21:51 Freq: Status: Active Protocol: Document 04/28/22 09:00 AMB (Rec: 04/30/22 09:18 AMB [id number]) Physical Therapy Assessment Goals Two Impairment Tingling Short Term Goal (STG) Brandon will show less nerve irritability by being able to peform a row without increasing the tingling in his arm. STG Duration 4 weeks Trim Carpenter Goal (LTG) Brandon will lift 20# to chest height without pain or tingling. LTG Duration 8 weeks One Impairment Pain Short Term Goal (STG) Brandon will stand for 45 minutes without an increase in his baseline pain. Trim Carpenter Goal (LTG) Brandon will work for 8 hours with 2/10 pain or less. LTG Duration 10 weeks Assessment Summary Assessment Brandon tolerated PT well, less intense numbness/tingling than at eval. Continues to have numbness tingling with prolonged shoulder abduction or flexion. Physical Therapy Plan Next Visit Focus/Plan Next Visit Plan Progress scapular stabilization and cervical/ shoulder mobility trying not to flare numbness/tingling
--- NOTE | 2022-05-12 09:01 | PT.OTN ---
Current Diagnoses Dorsalgia, unspecified (05/12/22) Physical Therapy Treatment Note PT-OP-A Visit Information Start: 04/11/22 21:51 Freq: Status: Active Protocol: Document 05/12/22 08:14 AMB (Rec: 05/12/22 09:01 AMB [id number]) Out-Patient Physical Therapy Visit Information Visit Information Visit Type Treatment Note Visit Start Time 08:15 Visit Stop Time 09:00 Total Visit Minutes 45 Visit Number 3 PT-OP-B Current Condition Start: 04/11/22 21:51 Freq: Status: Active Protocol: Document 04/12/22 13:47 AMB (Rec: 04/12/22 13:57 AMB [id number]) Current Condition History of Current Condition Onset Date Summer 2019 Current Complaints tingling into R arm, upper back pain History of Current Condition Tingling and pain going down the arm. Pain starts out more manageable throughout the day gets worse. Pain is worsened by working, standing, lifting , eased by ice, lying down. Pain is worst distally worst at the elbow, sharp. Does endorse reduced sensation and dropping things. Staying the same. Pain in the back worsened with lifting late partner, arm pain started after that. Partner passed from Alzheimers. 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 Personal Factors Other Personal Factors That May Effect Current every day smoker, Therapy/Recovery neuropathy, CA history: colon 2008, oral 2007. PT-OP-C Subjective Start: 04/11/22 21:51 Freq: Status: Active Protocol: Document 05/12/22 08:14 AMB (Rec: 05/12/22 09:01 AMB [id number]) OP-PT Subjective Patient Comments Patient Comments Pt reports he had the flu last week. Has been fever free for 4 days now. PT-OP-J Posture/Palpation/Skin Start: 04/11/22 21:51 Freq: Status: Active Protocol: Document 04/12/22 13:45 AMB (Rec: 04/12/22 15:00 AMB [id number]) Posture Evaluation Comments Posture Comments Moderate/severe forward shoulders, forward head Palpation Assessment Location One Palpation Location R scapula Palpation Details Tenderness at levator scapula PT-OP-K Range of Motion Start: 04/11/22 21:51 Freq: Status: Active Protocol: Document 04/12/22 13:45 AMB (Rec: 04/12/22 15:00 AMB [id number]) Cervical Spine Range of Motion Cervical Spine Active Degrees Comments WFL Shoulder Goniometric Range of Motion Shoulder Right Active Comments Pt reports unable to lift shoulder at end of the day, but was able to lift through full ROM during exam PT-OP-L Special Tests Start: 04/11/22 21:51 Freq: Status: Active Protocol: Document 04/12/22 13:45 AMB (Rec: 04/18/22 15:41 AMB [id number]) Special Tests Cervical Spine Special Tests Spurling's Test Test Results - Vascular Special Tests Duarte Test Test Results + Comments after 10 seconds increased sx on palm of R hand into all 5 fingers PT-OP-M Strength Start: 04/11/22 21:51 Freq: Status: Active Protocol: Document 04/12/22 13:45 AMB (Rec: 04/12/22 15:00 AMB [id number]) Hand Director Of Software Development/Pinch Strength Hand Dominance Hand Dominance Right Hand Strength Left Director Of Software Development (lbs) 65 Right Director Of Software Development (lbs) 65 PT-OP-Q Treatments Start: 04/11/22 21:51 Freq: Status: Active Protocol: Document 05/12/22 08:14 AMB (Rec: 05/12/22 09:01 AMB [id number]) Therapeutic Exercises Sidelying Exercises open book Side right Reps/Minutes 10 Sitting Exercises pulleys Sitting Exercise Name abduction Reps/Minutes 10 upper trap stretch Reps/Minutes 30x2 Standing Exercises scap squeezes Side bilateral Reps/Minutes 10 Comments HEP rows Standing Exercise Name t band Comments increased tingling 1 Standing Exercise Name pec stretch in corner Comments increased tingling Other Exercises quadruped UE flexion Reps/Minutes 2x10 thread the needle Side right Reps/Minutes 2x10 agustina pose Reps/Minutes 30x2 Manual Therapy Treatment Soft Tissue Mobilization scapula Body Location R upper trap, rhomboids, Mobilization Type Myofascial Release Intensity/Depth Moderate Body Position Supine Comments pin and stretch for anterior and posterior musculature, careful with flexion and abduction shoulder positioning PT-OP-T Assessment and Plan Start: 04/11/22 21:51 Freq: Status: Active Protocol: Document 05/12/22 08:14 AMB (Rec: 05/12/22 09:01 AMB [id number]) Physical Therapy Assessment Goals Two Impairment Tingling Short Term Goal (STG) Brandon will show less nerve irritability by being able to peform a row without increasing the tingling in his arm. STG Duration 4 weeks Telegraph Editor Goal (LTG) Brandon will lift 20# to chest height without pain or tingling. LTG Duration 8 weeks One Impairment Pain Short Term Goal (STG) Brandon will stand for 45 minutes without an increase in his baseline pain. Halfway Goal (LTG) Brandon will work for 8 hours with 2/10 pain or less. LTG Duration 10 weeks Assessment Summary Assessment Brandon is doing well after his illness, continues to have tingling, but exercise seems to be decreasing intensity of sx.
--- NOTE | 2022-05-19 16:06 | PT.OTN ---
Current Diagnoses Dorsalgia, unspecified (05/19/22) Physical Therapy Treatment Note PT-OP-A Visit Information Start: 04/11/22 21:51 Freq: Status: Active Protocol: Document 05/19/22 08:26 AMB (Rec: 05/19/22 09:39 AMB [id number]) Out-Patient Physical Therapy Visit Information Visit Information Visit Type Treatment Note Visit Start Time 08:15 Visit Stop Time 09:00 Total Visit Minutes 45 Visit Number 4 PT-OP-B Current Condition Start: 04/11/22 21:51 Freq: Status: Active Protocol: Document 04/12/22 13:47 AMB (Rec: 04/12/22 13:57 AMB [id number]) Current Condition History of Current Condition Onset Date Summer 2019 Current Complaints tingling into R arm, upper back pain History of Current Condition Tingling and pain going down the arm. Pain starts out more manageable throughout the day gets worse. Pain is worsened by working, standing, lifting , eased by ice, lying down. Pain is worst distally worst at the elbow, sharp. Does endorse reduced sensation and dropping things. Staying the same. Pain in the back worsened with lifting late partner, arm pain started after that. Partner passed from Alzheimers. 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 Personal Factors Other Personal Factors That May Effect Current every day smoker, Therapy/Recovery neuropathy, CA history: colon 2008, oral 2007. PT-OP-C Subjective Start: 04/11/22 21:51 Freq: Status: Active Protocol: Document 05/19/22 08:15 AMB (Rec: 05/19/22 09:58 AMB [id number]) OP-PT Subjective Patient Comments Patient Comments Pt is reporting difficulty with lifting overhead at work PT-OP-J Posture/Palpation/Skin Start: 04/11/22 21:51 Freq: Status: Active Protocol: Document 04/12/22 13:45 AMB (Rec: 04/12/22 15:00 AMB [id number]) Posture Evaluation Comments Posture Comments Moderate/severe forward shoulders, forward head Palpation Assessment Location One Palpation Location R scapula Palpation Details Tenderness at levator scapula PT-OP-K Range of Motion Start: 04/11/22 21:51 Freq: Status: Active Protocol: Document 04/12/22 13:45 AMB (Rec: 04/12/22 15:00 AMB [id number]) Cervical Spine Range of Motion Cervical Spine Active Degrees Comments WFL Shoulder Goniometric Range of Motion Shoulder Right Active Comments Pt reports unable to lift shoulder at end of the day, but was able to lift through full ROM during exam PT-OP-L Special Tests Start: 04/11/22 21:51 Freq: Status: Active Protocol: Document 04/12/22 13:45 AMB (Rec: 04/18/22 15:41 AMB [id number]) Special Tests Cervical Spine Special Tests Spurling's Test Test Results - Vascular Special Tests Duarte Test Test Results + Comments after 10 seconds increased sx on palm of R hand into all 5 fingers PT-OP-M Strength Start: 04/11/22 21:51 Freq: Status: Active Protocol: Document 04/12/22 13:45 AMB (Rec: 04/12/22 15:00 AMB [id number]) Hand Sorting Livestock Worker/Pinch Strength Hand Dominance Hand Dominance Right Hand Strength Left Sorting Livestock Worker (lbs) 65 Right Sorting Livestock Worker (lbs) 65 PT-OP-Q Treatments Start: 04/11/22 21:51 Freq: Status: Active Protocol: Document 05/19/22 08:15 AMB (Rec: 05/19/22 16:05 AMB [id number]) Therapeutic Exercises Supine Exercises pec stretch Side bilateral Reps/Minutes 30x2 Comments HEP Sidelying Exercises open book Side right Reps/Minutes 10 Sitting Exercises pulleys Sitting Exercise Name abduction Reps/Minutes 10 Standing Exercises wall walk, lift off Side right Reps/Minutes 10 Comments increased tingling Other Exercises Y's on ball Other Exercise Name AROM only Reps/Minutes 2x10 Comments increased tingling agustina pose Reps/Minutes 30x2 Manual Therapy Treatment Soft Tissue Mobilization pectorals Body Location supine Mobilization Type Myofascial Release Intensity/Depth Moderate Comments R PT-OP-T Assessment and Plan Start: 04/11/22 21:51 Freq: Status: Active Protocol: Document 05/19/22 08:26 AMB (Rec: 05/19/22 09:39 AMB [id number]) Physical Therapy Assessment Goals Two Impairment Tingling Short Term Goal (STG) Brandon will show less nerve irritability by being able to peform a row without increasing the tingling in his arm. STG Duration 4 weeks Intermediate Goal (LTG) Brandon will lift 20# to chest height without pain or tingling. LTG Duration 8 weeks One Impairment Pain Short Term Goal (STG) Brandon will stand for 45 minutes without an increase in his baseline pain. STG Duration MET- pain increases after 4-5 hours Movie Theater Manager Goal (LTG) Brandon will work for 8 hours with 2/10 pain or less. PRogress made 3-4/10 at end of shift. LTG Duration 10 weeks Assessment Summary Assessment Brandon is improving but continues to have tingling in his right arm with overhead activities and pec stretch, was quite tender with pec manual today. Stretching gently does continue to reduce sx. Physical Therapy Plan Frequency and Duration Frequency of Treatment 2x/Week Duration of treatment (weeks) 10 Plan of Care Start Date 04/12/22 Plan of Care End Date 06/21/22 Therapeutic Interventions Therapeutic Interventions Home Exercise Program,Joint Mobilizations,Manual Therapy, Neuromuscular Re-education, Self-Care/Home Management, Therapeutic Activities, Therapeutic Exercises Modalities Cold Pack/Ice Massage,Electric Stimulation,Hot Packs Next Visit Focus/Plan Next Visit Plan Next visit: give pt progression he can perform at gym as $40 copay is becoming prohibitive.
--- NOTE | 2022-06-02 21:41 | PT.OTN ---
Current Diagnoses Dorsalgia, unspecified (06/02/22) Physical Therapy Treatment Note PT-OP-A Visit Information Start: 04/11/22 21:51 Freq: Status: Active Protocol: Document 06/02/22 08:18 AMB (Rec: 06/02/22 08:54 AMB [id number]) Out-Patient Physical Therapy Visit Information Visit Information Visit Type Treatment Note Visit Start Time 08:15 Visit Stop Time 09:00 Total Visit Minutes 45 Visit Number 5 PT-OP-B Current Condition Start: 04/11/22 21:51 Freq: Status: Active Protocol: Document 04/12/22 13:47 AMB (Rec: 04/12/22 13:57 AMB [id number]) Current Condition History of Current Condition Onset Date Summer 2019 Current Complaints tingling into R arm, upper back pain History of Current Condition Tingling and pain going down the arm. Pain starts out more manageable throughout the day gets worse. Pain is worsened by working, standing, lifting , eased by ice, lying down. Pain is worst distally worst at the elbow, sharp. Does endorse reduced sensation and dropping things. Staying the same. Pain in the back worsened with lifting late partner, arm pain started after that. Partner passed from Alzheimers. 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 Personal Factors Other Personal Factors That May Effect Current every day smoker, Therapy/Recovery neuropathy, CA history: colon 2008, oral 2007. PT-OP-C Subjective Start: 04/11/22 21:51 Freq: Status: Active Protocol: Document 06/02/22 08:18 AMB (Rec: 06/02/22 08:54 AMB [id number]) OP-PT Subjective Patient Comments Patient Comments Pt had covid last week, PT-OP-J Posture/Palpation/Skin Start: 04/11/22 21:51 Freq: Status: Active Protocol: Document 04/12/22 13:45 AMB (Rec: 04/12/22 15:00 AMB [id number]) Posture Evaluation Comments Posture Comments Moderate/severe forward shoulders, forward head Palpation Assessment Location One Palpation Location R scapula Palpation Details Tenderness at levator scapula PT-OP-K Range of Motion Start: 04/11/22 21:51 Freq: Status: Active Protocol: Document 04/12/22 13:45 AMB (Rec: 04/12/22 15:00 AMB [id number]) Cervical Spine Range of Motion Cervical Spine Active Degrees Comments WFL Shoulder Goniometric Range of Motion Shoulder Right Active Comments Pt reports unable to lift shoulder at end of the day, but was able to lift through full ROM during exam PT-OP-L Special Tests Start: 04/11/22 21:51 Freq: Status: Active Protocol: Document 04/12/22 13:45 AMB (Rec: 04/18/22 15:41 AMB [id number]) Special Tests Cervical Spine Special Tests Spurling's Test Test Results - Vascular Special Tests Duarte Test Test Results + Comments after 10 seconds increased sx on palm of R hand into all 5 fingers PT-OP-M Strength Start: 04/11/22 21:51 Freq: Status: Active Protocol: Document 04/12/22 13:45 AMB (Rec: 04/12/22 15:00 AMB [id number]) Hand Crystal Grower/Pinch Strength Hand Dominance Hand Dominance Right Hand Strength Left Crystal Grower (lbs) 65 Right Crystal Grower (lbs) 65 PT-OP-Q Treatments Start: 04/11/22 21:51 Freq: Status: Active Protocol: Document 06/02/22 08:15 AMB (Rec: 06/08/22 13:15 AMB [id number]) Therapeutic Exercises Sitting Exercises pulleys Sitting Exercise Name abduction Reps/Minutes 10 Standing Exercises wrist stretch Standing Exercise Name forearm flexors and extensors scap squeezes Side bilateral Reps/Minutes 10 Comments HEP rows Standing Exercise Name t band Comments increased tingling Other Exercises thread the needle Side right Reps/Minutes 2x10 agustina pose Reps/Minutes 30x2 Manual Therapy Treatment Soft Tissue Mobilization pectorals Body Location supine Mobilization Type Myofascial Release Intensity/Depth Moderate Comments R scapula Body Location R upper trap, rhomboids, Mobilization Type Myofascial Release Intensity/Depth Moderate Body Position Supine Comments pin and stretch for anterior and posterior musculature, careful with flexion and abduction shoulder positioning PT-OP-T Assessment and Plan Start: 04/11/22 21:51 Freq: Status: Active Protocol: Document 06/02/22 08:18 AMB (Rec: 06/02/22 08:54 AMB [id number]) Physical Therapy Assessment Goals Two Impairment Tingling Short Term Goal (STG) Brandon will show less nerve irritability by being able to peform a row without increasing the tingling in his arm. STG Duration MET Conservation Officer Goal (LTG) Brandon will lift 20# to chest height without pain or tingling. LTG Duration Partially met- still problematic on bad days/at end of shift One Impairment Pain Short Term Goal (STG) Brandon will stand for 45 minutes without an increase in his baseline pain. STG Duration MET- pain increases after 4-5 hours Residential Goal (LTG) Brandon will work for 8 hours with 2/10 pain or less. Variable: some times no pain, sometimes 7/10 day. LTG Duration progress made Assessment Summary Assessment Brandon continues to have pain, although it is less in nature. Unfortunately he has had both the flu and covid while in PT and while he was originally making progress, the inflammation from those sick weeks increased pain/made it difficult for him to be consistent at the gym which had prviously been very helfpul to him. He also has a high copay, so did not want to continue with PT, even though he had been making good progress prior to being sick. Would recommend he continue with his exercises, awareness of his posture, consider bracing for his elbow pain, and follow up with PCP if tingling continues to progress or worsen. Physical Therapy Plan Frequency and Duration Frequency of Treatment 2x/Week Duration of treatment (weeks) 10 Plan of Care Start Date 04/12/22 Plan of Care End Date 06/21/22 Therapeutic Interventions Therapeutic Interventions Home Exercise Program,Joint Mobilizations,Manual Therapy, Neuromuscular Re-education, Self-Care/Home Management, Therapeutic Activities, Therapeutic Exercises Modalities Cold Pack/Ice Massage,Electric Stimulation,Hot Packs
--- NOTE | 2022-06-10 21:42 | PT.OPDS ---
Current Diagnoses Dorsalgia, unspecified (06/02/22) Visit Care Team Role Provider Type Johan Wiggins MD Attending Provider Physician Family Provider Primary Care Provider Referring Provider Specialty: Internal Medicine Address: [address] [place] [address], [address], [place], [address] Email: [email or web address] Visit Number Visit Number 5 Discharge Summary PT-OP-B Current Condition Start: 04/11/22 21:51 Freq: Status: Active Protocol: Document 04/12/22 13:47 AMB (Rec: 04/12/22 13:57 AMB [id number]) Current Condition History of Current Condition Onset Date Summer 2019 Current Complaints tingling into R arm, upper back pain History of Current Condition Tingling and pain going down the arm. Pain starts out more manageable throughout the day gets worse. Pain is worsened by working, standing, lifting , eased by ice, lying down. Pain is worst distally worst at the elbow, sharp. Does endorse reduced sensation and dropping things. Staying the same. Pain in the back worsened with lifting late partner, arm pain started after that. Partner passed from Alzheimers. 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 Personal Factors Other Personal Factors That May Effect Current every day smoker, Therapy/Recovery neuropathy, CA history: colon 2008, oral 2007. PT-OP-C Subjective Start: 04/11/22 21:51 Freq: Status: Active Protocol: Document 06/02/22 08:18 AMB (Rec: 06/02/22 08:54 AMB [id number]) OP-PT Subjective Patient Comments Patient Comments Pt had covid last week, PT-OP-J Posture/Palpation/Skin Start: 04/11/22 21:51 Freq: Status: Active Protocol: Document 04/12/22 13:45 AMB (Rec: 04/12/22 15:00 AMB [id number]) Posture Evaluation Comments Posture Comments Moderate/severe forward shoulders, forward head Palpation Assessment Location One Palpation Location R scapula Palpation Details Tenderness at levator scapula PT-OP-K Range of Motion Start: 04/11/22 21:51 Freq: Status: Active Protocol: Document 04/12/22 13:45 AMB (Rec: 04/12/22 15:00 AMB [id number]) Cervical Spine Range of Motion Cervical Spine Active Degrees Comments WFL Shoulder Goniometric Range of Motion Shoulder Right Active Comments Pt reports unable to lift shoulder at end of the day, but was able to lift through full ROM during exam PT-OP-L Special Tests Start: 04/11/22 21:51 Freq: Status: Active Protocol: Document 04/12/22 13:45 AMB (Rec: 04/18/22 15:41 AMB [id number]) Special Tests Cervical Spine Special Tests Spurling's Test Test Results - Vascular Special Tests Duarte Test Test Results + Comments after 10 seconds increased sx on palm of R hand into all 5 fingers PT-OP-M Strength Start: 04/11/22 21:51 Freq: Status: Active Protocol: Document 04/12/22 13:45 AMB (Rec: 04/12/22 15:00 AMB [id number]) Hand Fiberglass Boat Finisher/Pinch Strength Hand Dominance Hand Dominance Right Hand Strength Left Fiberglass Boat Finisher (lbs) 65 Right Fiberglass Boat Finisher (lbs) 65 PT-OP-T Assessment and Plan Start: 04/11/22 21:51 Freq: Status: Active Protocol: Document 06/02/22 08:18 AMB (Rec: 06/02/22 08:54 AMB [id number]) Physical Therapy Assessment Goals Two Impairment Tingling Short Term Goal (STG) Brandon will show less nerve irritability by being able to peform a row without increasing the tingling in his arm. STG Duration MET Strip Tank Tender Goal (LTG) Brandon will lift 20# to chest height without pain or tingling. LTG Duration Partially met- still problematic on bad days/at end of shift One Impairment Pain Short Term Goal (STG) Brandon will stand for 45 minutes without an increase in his baseline pain. STG Duration MET- pain increases after 4-5 hours Prison Goal (LTG) Brandon will work for 8 hours with 2/10 pain or less. Variable: some times no pain, sometimes 7/10 day. LTG Duration progress made Assessment Summary Assessment Brandon continues to have pain, although it is less in nature. Unfortunately he has had both the flu and covid while in PT and while he was originally making progress, the inflammation from those sick weeks increased pain/made it difficult for him to be consistent at the gym which had prviously been very helfpul to him. He also has a high copay, so did not want to continue with PT, even though he had been making good progress prior to being sick. Would recommend he continue with his exercises, awareness of his posture, consider bracing for his elbow pain, and follow up with PCP if tingling continues to progress or worsen. Physical Therapy Plan Frequency and Duration Frequency of Treatment 2x/Week Duration of treatment (weeks) 10 Plan of Care Start Date 04/12/22 Plan of Care End Date 06/21/22 Therapeutic Interventions Therapeutic Interventions Home Exercise Program,Joint Mobilizations,Manual Therapy, Neuromuscular Re-education, Self-Care/Home Management, Therapeutic Activities, Therapeutic Exercises Modalities Cold Pack/Ice Massage,Electric Stimulation,Hot Packs
== END 2022-06-14 08:45 | disposition home or self-care (01) ==
LOC: PHYS 08:15
PROVIDERS: Family Provider Internal Medicine; PCP Internal Medicine; Referring Provider Internal Medicine; Visit Provider Internal Medicine
DX: M54.9 Dorsalgia, unspecified (principal)
CPT/HCPCS: 97110; 97140; 97161

== ENCOUNTER → 2022-07-24 15:06 | Outpatient (CLI) | payer OTHER, MEDICARE, SELFPAY ==
--- NOTE | 2022-07-24 15:08 | DI.RAD.S_ITS ---
PROCEDURE: XR ANKLE LT MIN 3V INDICATIONS: pain, hardware moving from prev sx TECHNIQUE: Three views of the ankle were acquired. COMPARISON: [facility], , ANKLE 3 VIEWS LEFT, 10/02/2009, 1:37. FINDINGS: Bones: No acute fracture. Medial malleolar screw and distal fibular lateral compression plate with transverse screws appears intact and in expected position. The ankle mortise is intact. No acute fractures. Soft tissues: No tibiotalar joint effusion. Achilles tendon appears normal. IMPRESSION: 1. No evidence of hardware failure. 2. No acute fractures or joint effusion. Dictated by: Heidi Garcia M.D. on 07/24/2022 at 17:25 Approved by: Heidi Garcia M.D. on 07/24/2022 at 17:27
--- NOTE | 2022-07-24 15:08 | DI.RAD.S_ITS ---
PROCEDURE: XR TIBIA FIBULA LT 2V INDICATIONS: pain TECHNIQUE: 2 views of the tibia and fibula were acquired. COMPARISON: None. FINDINGS: Bones: No fractures or dislocations. Hardware of a prior bimalleolar fracture fixation. No suspicious bony lesions. Soft tissues: No suspicious soft tissue calcifications or masses. Linear dystrophic calcification partially seen in the popliteal fossa. IMPRESSION: 1. Intact tibia and fibula. 2. Intact hardware in the distal tibia and fibula. Dictated by: Heidi Garcia M.D. on 07/24/2022 at 17:09 Approved by: Heidi Garcia M.D. on 07/24/2022 at 17:25
== END ==
PROVIDERS: Family Provider Internal Medicine; PCP Internal Medicine; Referring Provider Nurse Practitioner Family; Visit Provider Nurse Practitioner Family
DX: M79.605 Pain in left leg (principal); Z98.890 Other specified postprocedural states
CPT/HCPCS: 73590; 73610

== ENCOUNTER → 2022-08-25 11:31 | Outpatient (CLI) | payer OTHER, MEDICARE, SELFPAY ==
[2022-08-25 12:55] LABS: Alanine Aminotransferase 37 IU/L (<50); Albumin 4.5 g/dL (3.5-5.0); Albumin Globulin Ratio 1.4 (1.0-2.8); Alkaline Phosphatase 79 U/L (38-126); Aspartate Aminotransferase 40 IU/L (17-59); Bilirubin Total 0.7 mg/dL (0.2-1.3); Blood Urea Nitrogen 17 mg/dL (9-20); Calcium 9.2 mg/dL (8.4-10.2); Carbon Dioxide 27 mmol/L (22-32); Chloride 103 mmol/L (98-107); Estimated Glomerular Filt Rate > 60 mL/min (>60); Globulin 3.3 g/dL (1.7-4.1); Glucose 124 mg/dL (80-110); HEMOLYSIS 20 (0-50); Potassium 4.4 mmol/L (3.4-5.1); Sodium 137 mmol/L (137-145); Total Protein 7.8 g/dL (6.3-8.2)
[2022-08-25 13:19] LABS: Carcinoembryonic Antigen 11.4 ng/mL (0.1-3.0); Prostate Specific Antigen Scrn 1.36 ng/mL (0.1-4.0)
== END ==
PROVIDERS: Family Provider Internal Medicine; PCP Internal Medicine; Referring Provider Internal Medicine; Visit Provider Internal Medicine
DX: C18.9 Malignant neoplasm of colon, unspecified (principal); Z12.5 Encounter for screening for malignant neoplasm of prostate
CPT/HCPCS: 36415; 80053; 82378; G0103

== ENCOUNTER 2022-10-27 06:33 | Day surgery (SDC) | payer OTHER, MEDICARE, SELFPAY ==
--- NOTE | 2022-10-27 | PATH_ITS ---
[facility] Accession Number: [id number] No. of containers..01 Tissue . 01 Material submitted: . rectum - RECTAL POLYP . 01 Diagnosis: Rectum, Polyp, Biopsy: Hyperplastic polyp. MRV 11/01/2022 1505 Local . 01 Electronically signed: . Rosa Elena Hilario MD, Pathologist NPI- [id number] . 01 Gross description: . RECTAL POLYP: Received in formalin are 2 fragment(s) of peraza, soft tissue measuring 0.1 x 0.1 x 0.1 cm to 0.3 x 0.3 x 0.2 cm submitted entirely in 1 cassette(s) /FERNANDEZ 10/31/2022 1955 Local . 01 Pathologist provided ICD-10: K62.1 . 01 CPT . R12652 Specimen Comment: A courtesy copy of this report has been sent to Pathology Performed at: 01 [facility] [address] [place] [address], [place], [place] [id number] MD Michael Hernandez MD Phone: [phone]
[2022-10-27] MEDS: LACTATED RINGERS 1,000 ML 100 ML IV (07:26)
[2022-10-27 07:33] VITALS: BP 140/79; PULSE 74; RESP 16; TEMP 36.2; O2SAT 99; BMI 22.1
--- NOTE | 2022-10-27 07:54 | P.HP_ITS ---
History of Present Illness History of Present Illness Date Patient Seen: 10/27/22 Time Patient Seen: 07:54 Chief complaint: Colonoscopy, high risk Narrative: Mr. Orozco presents today for a screening colonoscopy. He was diagnosed with colon cancer in 2008. And is status post resection and chemotherapy. He had his last colonoscopy in 2009 he believes. This was the 1st 1 after his diagnosis. The cancer was diagnosed on a colonoscopy. And he has had more than 1 colonoscopy in the past. [facility] Medical History (Updated 10/27/22 @ 07:56 by Aggie Parker MD) BPH w urinary obs/LUTS Colon cancer (~2008) Erectile dysfunction due to arterial insufficiency Oral cancer (~2007) Right hydrocele Ventral incisional hernia Vision disorder Surgical History Anesthesia History of oral surgery (~2007) S/P inguinal hernia repair (~2007) S/P partial colectomy (~2008) Family History Father Lung cancer Mother Breast cancer, stage 0 Sister Lung cancer Grandfather Accident Social History marital status: number of children: 1 household members: none Smoking Status: Current every day smoker alcohol intake: current Type(s) of exercise: walking frequency: daily duration: 45-60 minutes/day Meds Home Medications and Allergies Home Medications Medication Instructions Recorded Confirmed Type sildenafil (pulm.hypertension) 20 20 mg PO DAILY #10 tabs 12/08/21 08/24/22 Rx mg tablet diclofenac sodium 1 % topical gel 2 g topical QID #100 grams 07/24/22 10/27/22 Rx tamsulosin 0.4 mg capsule 0.4 mg PO BEDTIME #90 caps 10/25/22 10/27/22 Rx Allergies Allergy/AdvReac Type Severity Reaction Status Date / Time No Known Drug Allergies Allergy Verified 10/27/22 07:32 Exam Vital Signs (past 8 hours): - 10/27/22 07:33 Temperature 97.2 F L Pulse Rate 74 Respiratory Rate 16 Blood Pressure 140/79 Pulse Oximetry 99 Oxygen Delivery Method Room Air Oxygen Delivery Method Room Air Const General: cooperative, healthy appearing, comfortable and frail appearing [facility] Head: normal to inspection Resp Effort & Inspection: normal respiratory effort and able to speak in complete sentences GI Palpation: soft and No tender Assessment & Plan Assessment and plan (1) History of colon cancer: Status: Acute Plan Presents today for screening colonoscopy I discussed the risks benefits and alternatives including but not limited to perforation of the colon and an incomplete exam he fully understands these risks and would like to proceed.
--- NOTE | 2022-10-27 07:58 | P.OP.COLON_ITS ---
Procedure & Clinicians Study performed: Colonoscopy and biopsy Indications: Diagnosed with colon cancer in 2008 underwent right hemicolectomy followed by chemotherapy.? Apparently was a stage III disease at that time.? Had follow-up colonoscopy about a year later with Dr. Alexa kruse in 2009. Personal history of colon cancer Surgeon: Aggie Parker Procedure Notes Procedure in detail: Patient was taken to the endoscopy suite and placed in a left lateral decubitus position. Anesthesiologist Vishnu Crowley induced and maintained conscious sedation throughout the case. A time-out was performed. A digital rectal exam revealed no masses or strictures. There was left lateral external hemorrhoid/skin tag. The colonoscope was introduced into the anal canal and advanced through to the anastomosis. The anastomosis was photographed. There was a small pocket of small bowel adjacent to the anastomosis which was photographed and intubated and the mucosa was examined thoroughly. The colonic mucosa appeared normal. [place] through the colon there was an area that was spasmodic or under pressure and though I feel the examination was adequate that spot was somewhat difficult to visualize and extra time was spent in that area. The prep was good [place] bowel prep score of 2. The remainder of the colon was unremarkable with the exception of 1 small rectal polyp that was removed with biopsy forceps. The scope was then retroflexed and a photograph was obtained. Patient tolerated the procedure well and went in good condition to the postoperative care unit. Findings: polyp(s) Specimen(s): other (1. Rectal polypx1 small) Complications: none Post-procedure Recommendations: Colonoscopy in 3 years Plan for aftercare: Think given his history of colon cancer the maximum amount of time he wants to go between scopes is 5 years. Given that his last interval was extended and therefore might have some difficulties with follow-up, I think recommending a 3 year follow-up at this time is prudent.
[2022-10-27 08:30] VITALS: BP 101/66; PULSE 64; RESP 15; TEMP 36.1; O2SAT 97
[2022-10-27 08:35] VITALS: BP 103/68; PULSE 61; RESP 15; O2SAT 96
[2022-10-27 08:40] VITALS: BP 150/88; PULSE 68; RESP 14; TEMP 36; O2SAT 99
[2022-10-27 08:41] VITALS: BP 152/85; PULSE 66; RESP 15; O2SAT 99
== END 2022-10-27 09:06 | disposition home or self-care (01) ==
PROVIDERS: Family Provider Internal Medicine; PCP Internal Medicine; Referring Provider Surgery; Visit Provider Surgery
PROC: 0DJD8ZZ Inspection of Lower Intestinal Tract, Via Natural or Artificial Opening Endoscopic (ICD-10-PCS; CPT 45378; principal; 2022-10-27 07:45)
DX: Z12.11 Encounter for screening for malignant neoplasm of colon (principal); Z85.038 Personal history of other malignant neoplasm of large intestine; K62.1 Rectal polyp
CPT/HCPCS: 45380; J2704

== ENCOUNTER 2023-04-28 10:47 | Emergency (ER) | payer OTHER, SELFPAY ==
[2023-04-28 10:53] VITALS: BP 202/95; PULSE 78; RESP 16; TEMP 36.1; O2SAT 99; BMI 21.1
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
[2023-04-28 15:11] VITALS: BP 181/87; PULSE 70; RESP 18; O2SAT 96
== END 2023-04-28 15:11 | disposition home or self-care (01) ==
PROVIDERS: Emergency Provider Emergency Medicine; Family Provider Internal Medicine; PCP Internal Medicine
DX: S06.0X0A Concussion without loss of consciousness, initial encounter (principal); S01.01XA Laceration without foreign body of scalp, initial encounter; W22.8XXA Striking against or struck by other objects, initial encounter
CPT/HCPCS: 70450; 99281; 99284

== ENCOUNTER → 2023-12-21 11:02 | Outpatient (CLI) | payer OTHER, SELFPAY ==
[2023-12-21 11:57] LABS: Add Manual Diff / Slide Review NO; Basophils Absolute Auto 100 /uL (0-100); Basophils Percent Auto 0.9 % (0-2); Eosinophils Absolute Auto 200 /uL (0-450); Eosinophils Percent Auto 2.2 % (2-4); Hematocrit 46.4 % (41-53); Lymphocytes Absolute Auto 1800 /uL (1100-4500); Lymphocytes Percent Auto 20.8 % (25-40); Mean Corpuscular HGB Conc 34.5 % (30-36); Mean Corpuscular Volume 95.8 fL (80-100); Monocytes Absolute Auto 600 /uL (0-900); Monocytes Percent Auto 7.2 % (3-14); Neutrophils Absolute Auto 5900 /uL (1500-7000); Neutrophils Percent Auto 68.9 % (50-75); Platelet Count 203 X10^3/uL (150-400); Red Blood Cell Count 4.85 X10^6/uL (4.5-5.9); White Blood Cell Count 8.6 X10^3/uL (4.5-11.0)
[2023-12-21 12:37] LABS: Alanine Aminotransferase 21 IU/L (<50); Albumin Globulin Ratio 1.3 (1.0-2.8); Alkaline Phosphatase 71 U/L (38-126); Aspartate Aminotransferase 24 IU/L (17-59); BUN Creatinine Ratio 16.3 (6-22); Bilirubin Total 0.5 mg/dL (0.2-1.3); Blood Urea Nitrogen 21 mg/dL (9-20); Calcium 9.2 mg/dL (8.4-10.2); Carbon Dioxide 24 mmol/L (22-32); Chloride 108 mmol/L (98-107); Estimated Glomerular Filt Rate > 60 mL/min (>60); Globulin 3.1 g/dL (1.7-4.1); Glucose 153 mg/dL (80-110); HEMOLYSIS < 15 (0-50); Potassium 3.8 mmol/L (3.4-5.1); Sodium 139 mmol/L (137-145); Total Protein 7.1 g/dL (6.3-8.2)
[2023-12-21 13:05] LABS: Carcinoembryonic Antigen 10.3 ng/mL (0.1-3.0); Prostate Specific Antigen Scrn 1.44 ng/mL (0.1-4.0)
== END ==
LOC: LAB 11:04
PROVIDERS: Family Provider Internal Medicine; PCP Internal Medicine; Referring Provider Internal Medicine; Visit Provider Internal Medicine
DX: Z12.5 Encounter for screening for malignant neoplasm of prostate (principal); N40.1 Benign prostatic hyperplasia with lower urinary tract symptoms; N13.8 Other obstructive and reflux uropathy; C18.9 Malignant neoplasm of colon, unspecified; D64.9 Anemia, unspecified
CPT/HCPCS: 36415; 80053; 82378; 85025; G0103

== ENCOUNTER 2024-01-24 08:48 | Emergency (ER) | payer OTHER, SELFPAY ==
[2024-01-24] VITALS (7 sets, daily range): BP systolic 159–218; BP diastolic 84–108; PULSE 80–81; RESP 16; TEMP 36.6; O2SAT 98–99; BMI 21.1
--- NOTE | 2024-01-24 08:59 | ED_ITS ---
HPI - General Adult General Chief complaint: Hypertension Stated complaint: high BP, sent by pcp Time Seen by Provider: 01/24/24 08:50 History of Present Illness HPI narrative: 68-year-old male presents for elevated blood pressure readings at his dentist's office. Patient was going in for routine cleaning and the wrist cuff used showed multiple high blood pressure readings. The patient called his primary doctor's office who referred him to the emergency department for evaluation. Patient states he feels like he was in his usual state of health and denies any complaints at this time. He denies history of high blood pressure, states that his last doctor's appointment was in November of this year and he had normal blood pressure readings at that visit. He had blood work at that time that was also unremarkable. Daily cigarette smoking, has several alcoholic drinks daily, denies illicit substance use Does not measure his blood pressure at home. Last blood pressure measurement at his doctor's office 1 month ago 150s/80s Related Data Previous Rx's Medication Instructions Recorded sildenafil (pulm.hypertension) 20 20 mg PO DAILY #10 tabs 12/08/21 mg tablet tamsulosin 0.4 mg capsule 0.4 mg PO BEDTIME #90 caps 12/21/23 amlodipine 5 mg tablet 5 mg PO DAILY #30 tabs 01/24/24 Allergies Allergy/AdvReac Type Severity Reaction Status Date / Time No Known Drug Allergies Allergy Verified 12/21/23 10:35 Patient History Medical History Erectile dysfunction due to arterial insufficiency Ventral incisional hernia Right hydrocele BPH w urinary obs/LUTS Vision disorder Oral cancer (~2007) Colon cancer (~2008) Surgical History Anesthesia History of oral surgery (~2007) S/P inguinal hernia repair (~2007) S/P partial colectomy (~2008) Family History Father Lung cancer Mother Breast cancer, stage 0 Sister Lung cancer Grandfather Accident Social History marital status: number of children: 1 household members: none Smoking Status: Current every day smoker alcohol intake: current Type(s) of exercise: walking frequency: daily duration: 45-60 minutes/day Smoking Status: Current every day smoker alcohol intake frequency: 3 or more drinks per day Substance Use Type: does not use Exam Initial Vital Signs Initial Vital Signs: Vital Signs Pulse Rate 81 01/24/24 08:56 Blood Pressure 210/105 H 01/24/24 08:56 Pulse Oximetry 98 01/24/24 08:56 Const: Awake, alert, no acute distress, nontoxic appearing Cardiac: regular rate, regular rhythm RESP: unlabored, clear bilaterally, no wheezing GI: Soft, nontender, nondistended, no rebound, no guarding MSK: Atraumatic, full range of motion, pulses equal Skin: Warm, Dry, intact, no rashes Neuro: AO x3, CN II-XII grossly intact, moves all extremities Course Orders Ordered: ED Orders 01/24/24 09:06 EKG-12 Lead Routine 01/24/24 09:16 CBC Auto Diff [Complete Blood Count AUTO DIFF] Stat CMP [Comprehensive Metabolic Panel] Stat Discontinued Medications Clonidine HCl (Clonidine 0.1 Mg Tablet) 0.2 mg PO NOW ONE Stop: 01/24/24 08:58 Last Admin: 01/24/24 09:06 Dose: 0.2 mg Documented By: [facility] Vital Signs Vital signs: Vital Signs - 8 hr 01/24/24 08:56 01/24/24 08:56 01/24/24 08:57 Temperature 98 F Pulse Rate 81 80 Respiratory Rate 16 Blood Pressure 210/105 H 218/102 H Pulse Oximetry 98 99 Oxygen Delivery Method Room Air 01/24/24 09:00 01/24/24 09:06 01/24/24 09:30 Temperature Pulse Rate 80 Respiratory Rate Blood Pressure 212/108 H 210/106 H 197/96 H Pulse Oximetry Oxygen Delivery Method 01/24/24 10:00 Temperature Pulse Rate Respiratory Rate Blood Pressure 172/90 H Pulse Oximetry Oxygen Delivery Method Medical Decision Making Lab Data 01/24/24 09:16 01/24/24 09:16 Labs: Lab Results 01/24/24 Range/Units 09:16 WBC 8.7 (4.5-11.0) X10^3/uL RBC 5.12 (4.5-5.9) X10^6/uL Hgb 16.7 (13.5-17.5) g/dL Hct 49.5 (41-53) % MCV 96.7 (80-100) fL MCH 32.7 (26-34) PG MCHC 33.8 (30-36) % RDW 14.4 (11.6-14.8) % Plt Count 205 (150-400) X10^3/uL Neut % (Auto) 73.8 (50-75) % Lymph % (Auto) 15.2 L (25-40) % [place] % (Auto) 8.4 (3-14) % Eos % (Auto) 1.6 L (2-4) % Baso % (Auto) 1.0 (0-2) % Neut # (Auto) 6400 (4749-3444) /uL Lymph # (Auto) 1300 (8067-8978) /uL [place] # (Auto) 700 (0-900) /uL Eos # (Auto) 100 (0-450) /uL Baso # (Auto) 100 (0-100) /uL Sodium 139 (137-145) mmol/L Potassium 4.3 (3.4-5.1) mmol/L Chloride 108 H (98-107) mmol/L Carbon Dioxide 26 (22-32) mmol/L BUN 29 H (9-20) mg/dL Creatinine 1.30 H (0.66-1.25) mg/dL Estimated GFR 59 L (>60) mL/min BUN/Creatinine Ratio 22.3 H (6-22) Glucose 119 H (80-110) mg/dL Calcium 9.2 (8.4-10.2) mg/dL Total Bilirubin 0.6 (0.2-1.3) mg/dL AST 30 (17-59) IU/L ALT 26 (<50) IU/L Alkaline Phosphatase 84 (38-126) U/L Total Protein 7.5 (6.3-8.2) g/dL Albumin 4.4 (3.5-5.0) g/dL Globulin 3.1 (1.7-4.1) g/dL Albumin/Globulin Ratio 1.4 (1.0-2.8) MDM Narrative Medical decision making narrative: Asymptomatic high blood pressure incidentally noted at dentist appointment. Patient has no complaints at this time. Physical exam is unremarkable. Initial blood pressure was significantly elevated at 210/105. Given 0.2 clonidine in the emergency department. Patient's blood pressure gradually declined while in the emergency department, he continued to deny complaints. Unable to provide urine sample, patient requested to leave before giving a urine sample. Patient to be started on low- dose amlodipine. He was advised to purchase a home blood pressure cuff and monitor his blood pressures to bring to his primary care doctor's office. Discharge Plan Departure Patient Disposition: Home Clinical Impression: Hypertension Activity Restrictions/Additional Instructions: Your laboratory work today was pretty much unchanged from when it was taken 1 month ago. I recommend getting a blood pressure cuff and measuring your blood pressure 1 to 2 times per day. Right these values down in a diary and bring this to your primary care doctor. I am starting you on a low-dose blood pressure medication on amlodipine. Take this to help decrease your blood pressure. If you notice chest pain, worst headache of your life, blurred vision, leg swelling, or any other concerning symptoms please return to the emergency department for repeat evaluation. Prescriptions: New amlodipine 5 mg tablet 5 mg PO DAILY Qty: 30 0RF No Action tamsulosin 0.4 mg capsule 0.4 mg PO BEDTIME Qty: 90 3RF sildenafil (pulm.hypertension) 20 mg tablet 20 mg PO DAILY Qty: 10 6RF Rx Instructions: 1-5 tablets p.o. q.day as needed 1 to 1-1/2 hours before sexual activity. Referrals: Johan Wiggins MD [Primary Care Provider] - Stand Alone Forms: Patient Portal/API
--- NOTE | 2024-01-24 09:01 | PC.NURSE ---
asymptomatic hypertension. At dentist multiple elevated readings. PCP office sent patient to ER. Patient had physical in november with normal labs and vitals per patient.
[2024-01-24] MEDS: cloNIDine 0.1 MG TABLET 0.2 MG PO (09:06)
--- NOTE | 2024-01-24 09:06 | EKG_ITS ---
[address] [id number] [address] [address] Test Date: 2024-01-24 Pat Name: Brandon Orozco Department: Room: Gender: Male Scientologist: FORREST : 1955 Requested By: Order Number: [id number] Reading MD: Сергей Rivera Measurements Intervals [place] Rate: 69 P: 43 TX: 116 QRS: 30 QRSD: 90 T: 41 QT: 378 QTc: 405 Interpretive Statements Normal sinus rhythm Electronically Signed On 01-24-2024 17:13:45 PDT by Сергей Rivera
[2024-01-24 09:29] LABS: Add Manual Diff / Slide Review NO; Basophils Absolute Auto 100 /uL (0-100); Eosinophils Absolute Auto 100 /uL (0-450); Eosinophils Percent Auto 1.6 % (2-4); Hematocrit 49.5 % (41-53); Hemoglobin 16.7 g/dL (13.5-17.5); Lymphocytes Absolute Auto 1300 /uL (1100-4500); Lymphocytes Percent Auto 15.2 % (25-40); Mean Corpuscular HGB Conc 33.8 % (30-36); Mean Corpuscular Hemoglobin 32.7 PG (26-34); Mean Corpuscular Volume 96.7 fL (80-100); Monocytes Absolute Auto 700 /uL (0-900); Monocytes Percent Auto 8.4 % (3-14); Neutrophils Absolute Auto 6400 /uL (1500-7000); Neutrophils Percent Auto 73.8 % (50-75); Platelet Count 205 X10^3/uL (150-400); Red Blood Cell Count 5.12 X10^6/uL (4.5-5.9); Red Cell Distribution Width 14.4 % (11.6-14.8); White Blood Cell Count 8.7 X10^3/uL (4.5-11.0)
[2024-01-24 09:44] LABS: Alanine Aminotransferase 26 IU/L (<50); Albumin 4.4 g/dL (3.5-5.0); Albumin Globulin Ratio 1.4 (1.0-2.8); Alkaline Phosphatase 84 U/L (38-126); Aspartate Aminotransferase 30 IU/L (17-59); BUN Creatinine Ratio 22.3 (6-22); Bilirubin Total 0.6 mg/dL (0.2-1.3); Blood Urea Nitrogen 29 mg/dL (9-20); Calcium 9.2 mg/dL (8.4-10.2); Carbon Dioxide 26 mmol/L (22-32); Chloride 108 mmol/L (98-107); Estimated Glomerular Filt Rate 59 mL/min (>60); Globulin 3.1 g/dL (1.7-4.1); Glucose 119 mg/dL (80-110); HEMOLYSIS < 15 (0-50); Potassium 4.3 mmol/L (3.4-5.1); Sodium 139 mmol/L (137-145); Total Protein 7.5 g/dL (6.3-8.2)
== END 2024-01-24 10:53 | disposition home or self-care (01) ==
PROVIDERS: Emergency Provider Emergency Medicine; Family Provider Internal Medicine; PCP Internal Medicine
DX: I10 Essential (primary) hypertension (principal)
CPT/HCPCS: 36415; 80053; 85025; 93005; 99283; 99284

== ENCOUNTER → 2024-02-25 07:58 | Outpatient (CLI) | payer OTHER, SELFPAY ==
--- NOTE | 2024-02-25 07:59 | DI.RAD.S_ITS ---
PROCEDURE: XR RIBS RT MIN 3V W CXR 1V INDICATIONS: rib pain TECHNIQUE: 2 views of the ribs were acquired, along with a single view chest. COMPARISON: None. FINDINGS: Surgical changes and devices: None. Bones and chest wall: No fractures or dislocations. No suspicious bony lesions. Overlying soft tissues appear unremarkable. Lungs and pleura: No pleural effusions or pneumothorax. Lungs appear clear. Mediastinum: Mediastinal contours appear normal. Heart size is normal. IMPRESSION: No displaced rib fracture identified. No pneumothorax. CT chest could be considered for further evaluation. Dictated by: Glenn Brown M.D. on 02/25/2024 at 9:11 Approved by: Glenn Brown M.D. on 02/25/2024 at 9:13
== END ==
PROVIDERS: Family Provider Internal Medicine; PCP Internal Medicine; Referring Provider Nurse Practitioner Family; Visit Provider Nurse Practitioner Family
DX: R07.81 Pleurodynia (principal)
CPT/HCPCS: 71101

== ENCOUNTER → 2024-12-22 08:58 | Outpatient (CLI) | payer OTHER, SELFPAY ==
--- NOTE | 2024-12-22 09:01 | DI.RAD.S_ITS ---
PROCEDURE: XR CHEST 2V INDICATIONS: Lower right-sided rib pain, anterior TECHNIQUE: 2 views of the chest were acquired. COMPARISON: [facility], CR, XR CHEST 2V, 02/28/2022, 16:14. FINDINGS: Heart, mediastinum and pulmonary vascular: Heart is normal in size and configuration. Mediastinum is unremarkable. Pulmonary vascular is normal. Lungs: Scattered tiny calcified granulomas are unchanged Pleural spaces: Normal-no effusions or pneumothorax. Bones and soft tissues: Normal IMPRESSION: No acute disease-stable Dictated by: Johan Shoemaekr M.D. on 12/23/2024 at 10:50 Approved by: Johan Shoemaker M.D. on 12/23/2024 at 10:51
== END ==
PROVIDERS: Family Provider Internal Medicine; PCP Internal Medicine; Referring Provider Nurse Practitioner Family; Visit Provider Nurse Practitioner Family
DX: R05.9 Cough, unspecified (principal)
CPT/HCPCS: 71046

== ENCOUNTER → 2025-04-17 16:04 | Outpatient (CLI) | payer OTHER, SELFPAY ==
[2025-04-17 17:09] LABS: Blood Urea Nitrogen 31 mg/dL (9-20); Calcium 9.1 mg/dL (8.4-10.2); Carbon Dioxide 26 mmol/L (22-32); Chloride 100 mmol/L (98-107); Estimated Glomerular Filt Rate 42 mL/min (>60); Glucose 96 mg/dL (70-99); HEMOLYSIS 22 (0-50); Magnesium 2.3 mg/dL (1.6-2.3); Potassium 3.5 mmol/L (3.4-5.1); Sodium 134 mmol/L (137-145)
== END ==
PROVIDERS: Family Provider Internal Medicine; PCP Internal Medicine; Referring Provider Internal Medicine; Visit Provider Internal Medicine
DX: I10 Essential (primary) hypertension (principal)
CPT/HCPCS: 36415; 80048; 83735

== ENCOUNTER → 2025-06-04 14:16 | Outpatient (CLI) | payer OTHER, SELFPAY ==
[2025-06-04 16:54] LABS: Blood Urea Nitrogen 29 mg/dL (9-20); Calcium 9.5 mg/dL (8.4-10.2); Carbon Dioxide 22 mmol/L (22-32); Chloride 105 mmol/L (98-107); Estimated Glomerular Filt Rate 48 mL/min (>60); Glucose 83 mg/dL (70-99); HEMOLYSIS < 15 (0-50); Potassium 4.3 mmol/L (3.4-5.1); Sodium 138 mmol/L (137-145)
== END ==
PROVIDERS: Family Provider Internal Medicine; PCP Internal Medicine; Referring Provider Internal Medicine; Visit Provider Internal Medicine
DX: I12.9 Hypertensive chronic kidney disease with stage 1 through stage 4 chronic kidney disease, or unspecified chronic kidney disease (principal); N18.31 Chronic kidney disease, stage 3a
CPT/HCPCS: 36415; 80048